=== PATIENT | female | born 1955 | race American Indian/Alaskan Native ===

== ENCOUNTER 2021-09-25 05:11 | Inpatient (IN) | payer SELFPAY ==
[2021-09-25] MEDS ORDERED: NITROGLYCERIN 0.4 MG TAB SUBL SL PRN (05:19)
--- NOTE | 2021-09-25 05:20 | Event Note ---
Date: 09/25/21 Medical screening examination note: 66-year-old female, who is not COVID-19 vaccinated, who reports that she does not have a local primary care doctor and is not aware if she has any long-term medical problems, presents to the ER with a few days of chest pain and shortness of breath. Denies travel, surgery, immobilization, DVT, PE risk factors. Place patient on metal and plastic heater. Obtain appropriate laboratory studies, EKG, and x-ray the chest. Treat patient's pain. Detailed history and physical to be performed by oncoming ER provider, who will determine patient's final disposition. At the moment, patient is resting on stretcher, protecting airway, vital signs acceptable at this time.
[2021-09-25 05:58] LABS: Basophils # (Auto) 0.1 K/mm3 (0.0-0.1); Basophils % (Auto) 1.1 % (0.0-1.8); Eosinophils % (Auto) 0.5 % (0.0-4.3); Lymphocytes # (Auto) 1.1 K/mm3 (1.2-5.4); Lymphocytes % (Auto) 14.7 % (13.4-35.0); Mean Corpuscular HGB Conc 31 % (30-34); Mean Corpuscular Volume 79 fl (79-97); Monocytes # (Auto) 0.5 K/mm3 (0.0-0.8); Monocytes % (Auto) 6.9 % (0.0-7.3); Platelet Count 388 K/mm3 (140-440); Red Blood Count 4.72 M/mm3 (3.65-5.03)
[2021-09-25 06:04] LABS: Hematocrit 37.3 % (30.3-42.9); Hemoglobin 11.4 gm/dl (10.1-14.3)
--- NOTE | 2021-09-25 06:05 | XRay Report ---
CHEST 1 VIEW 09/25/2021 5:41 AM INDICATION / CLINICAL INFORMATION: Dyspnea. COMPARISON: None available. FINDINGS: SUPPORT DEVICES: None. HEART / MEDIASTINUM: There is mild cardiomegaly. LUNGS / PLEURA: There are small pleural effusions with pulmonary vascular congestion. No pneumothorax . ADDITIONAL FINDINGS: No significant additional findings. IMPRESSION: 1. Findings most likely indicating CHF as described. Signer Name: Carlos Novoa MD Signed: 09/25/2021 6:00 AM Workstation Name: [email or web address]
[2021-09-25 06:08] LABS: INR 1.12 (0.87-1.13)
[2021-09-25 06:14] LABS: Alanine Aminotransferase 27 units/L (7-56); Albumin 3.3 g/dL (3.9-5); BUN/Creatinine Ratio 17; Blood Urea Nitrogen 17 mg/dL (7-17); Calcium 9.8 mg/dL (8.4-10.2); Hemolysis Index 6
[2021-09-25] MEDS ORDERED: FUROSEMIDE 40 MG/4 ML INJ IV ONE (06:35)
[2021-09-25] MEDS ORDERED: NITROGLYCERIN 2% OINT 1 GM TP ONE (06:49)
--- NOTE | 2021-09-25 06:49 | Emergency Department Report ---
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 Pain is rated 6/10 in intensity without aggravating or alleviating factors. Patient has not seen a primary care doctor in many years. She states EMS came to the home 2 days ago and assessed her and since her exam was unremarkable was told she might have anxiety and elected not to come to the hospital. Symptoms worsened over the last several days. Patient smokes on occasion. Complains of cough and mild intermittent pedal edema. Patient expresses concern about being admitted since it is tax season and she has work to do Severity scale (0 -10): 6 - Related Data Allergies Allergy/AdvReac Type Severity Reaction Status Date / Time No Known Allergies Allergy Unverified 09/25/21 05:24 Heart Score - HEART Score History: Moderately suspicious EKG: Non-specific Age: 45-65 Risk factors: 1-2 risk factors Troponin: < normal limit HEART Score: 4 - EKG Read Time Time EKG Completed: 05:17 EKG Read Time: 05:20 ED Review of Systems ROS: Stated complaint: PETER Other details as noted in HPI Comment: All other systems reviewed and negative ED Past Medical Hx - Past Medical History Previous Medical History?: Yes Hx Hypertension: Yes - Surgical History Past Surgical History?: No - Social History Smoking Status: Current Every Day Smoker Substance Use Type: None ED Physical Exam - General Limitations: No Limitations - Other Other exam information: General: No acute distress Head: Atraumatic Eyes: normal appearance ENT: Moist mucous membranes Neck: Normal appearance, no midline tenderness Chest: Mild crackles at bases, tachypnea CV: Regular rate and rhythm Abdomen: Soft, normal bowel sounds, nontender, nondistended, no rebound or guarding Back: Normal inspection Extremity: Normal inspection, full range of motion, no edema noted, no calf tenderness or leg asymmetry Neuro: Alert O x 3, no facial asymmetry, speech clear, no gross motor sensory deficit Psych: Appropriate behavior Skin: No rash ED Course Vital Signs 09/25/21 09/25/21 09/25/21 05:25 05:26 05:31 Temperature 97.7 F Pulse Rate 95 H 95 H Respiratory 18 18 30 H Rate Blood Pressure 168/117 Blood Pressure 174/79 [Left] O2 Sat by Pulse 96 96 97 Oximetry 09/25/21 09/25/21 09/25/21 05:43 05:45 06:01 Temperature Pulse Rate 93 H 91 H 90 Respiratory 31 H 16 Rate Blood Pressure 172/111 172/111 151/99 Blood Pressure [Left] O2 Sat by Pulse 95 92 Oximetry 09/25/21 09/25/21 09/25/21 06:15 06:31 06:45 Temperature Pulse Rate 88 86 89 Respiratory 27 H 22 28 H Rate Blood Pressure 152/96 153/105 145/98 Blood Pressure [Left] O2 Sat by Pulse 96 95 97 Oximetry 09/25/21 09/25/21 07:01 07:17 Temperature Pulse Rate 91 H 91 H Respiratory 30 H 30 H Rate Blood Pressure 169/128 Blood Pressure 169/128 [Left] O2 Sat by Pulse 99 99 Oximetry EMERALD score - Emerald Score Age > 65: (0) No Aspirin use within the Past 7 Days: (0) No 3 or more CAD Risk Factors: (0) No 2 or more Angina events in past 24 hrs: (1) Yes Known CAD with more than 50% Stenosis: (0) No Elevated Cardiac Markers: (0) No ST Deviation Greater than 0.5mm: (0) No EMERALD Score: 1 ED Medical Decision Making - Lab Data Result diagrams: 09/25/21 05:24 09/25/21 05:24 Lab Results 09/25/21 09/25/21 09/25/21 Range/Units 05:24 05:24 05:24 WBC 7.5 (4.5-11.0) K/mm3 RBC 4.72 (3.65-5.03) M/mm3 Hgb 11.4 (10.1-14.3) gm/dl Hct 37.3 (30.3-42.9) % MCV 79 (79-97) fl MCH 24 L (28-32) pg MCHC 31 (30-34) % RDW 18.0 H (13.2-15.2) % Plt Count 388 (140-440) K/mm3 Lymph % (Auto) 14.7 (13.4-35.0) % [place] % (Auto) 6.9 (0.0-7.3) % Eos % (Auto) 0.5 (0.0-4.3) % Baso % (Auto) 1.1 (0.0-1.8) % Lymph # (Auto) 1.1 L (1.2-5.4) K/mm3 [place] # (Auto) 0.5 (0.0-0.8) K/mm3 Eos # (Auto) 0.0 (0.0-0.4) K/mm3 Baso # (Auto) 0.1 (0.0-0.1) K/mm3 Seg Neutrophils % 76.8 H (40.0-70.0) % Seg Neutrophils # 5.8 (1.8-7.7) K/mm3 PT 15.7 H (12.2-14.9) Sec. INR 1.12 (0.87-1.13) Sodium 142 (137-145) mmol/L Potassium 3.6 (3.6-5.0) mmol/L Chloride 108.1 H (98-107) mmol/L Carbon Dioxide 20 L (22-30) mmol/L Anion Gap 18 mmol/L BUN 17 (7-17) mg/dL Creatinine 1.0 (0.6-1.2) mg/dL Estimated GFR > 60 ml/min BUN/Creatinine Ratio 17 % Glucose 117 H (65-100) mg/dL Calcium 9.8 (8.4-10.2) mg/dL Magnesium 2.10 (1.7-2.3) mg/dL Total Bilirubin 0.30 (0.1-1.2) mg/dL AST 17 (5-40) units/L ALT 27 (7-56) units/L Alkaline Phosphatase 124 (35-129) units/L Troponin T < 0.010 (0.00-0.029) ng/mL NT-Pro-B Natriuret Pep (0-900) pg/mL Total Protein 7.6 (6.3-8.2) g/dL Albumin 3.3 L (3.9-5) g/dL Albumin/Globulin Ratio 0.8 % 09/25/21 Range/Units 05:24 WBC (4.5-11.0) K/mm3 RBC (3.65-5.03) M/mm3 Hgb (10.1-14.3) gm/dl Hct (30.3-42.9) % MCV (79-97) fl MCH (28-32) pg MCHC (30-34) % RDW (13.2-15.2) % Plt Count (140-440) K/mm3 Lymph % (Auto) (13.4-35.0) % [place] % (Auto) (0.0-7.3) % Eos % (Auto) (0.0-4.3) % Baso % (Auto) (0.0-1.8) % Lymph # (Auto) (1.2-5.4) K/mm3 [place] # (Auto) (0.0-0.8) K/mm3 Eos # (Auto) (0.0-0.4) K/mm3 Baso # (Auto) (0.0-0.1) K/mm3 Seg Neutrophils % (40.0-70.0) % Seg Neutrophils # (1.8-7.7) K/mm3 PT (12.2-14.9) Sec. INR (0.87-1.13) Sodium (137-145) mmol/L Potassium (3.6-5.0) mmol/L Chloride (98-107) mmol/L Carbon Dioxide (22-30) mmol/L Anion Gap mmol/L BUN (7-17) mg/dL Creatinine (0.6-1.2) mg/dL Estimated GFR ml/min BUN/Creatinine Ratio % Glucose (65-100) mg/dL Calcium (8.4-10.2) mg/dL Magnesium (1.7-2.3) mg/dL Total Bilirubin (0.1-1.2) mg/dL AST (5-40) units/L ALT (7-56) units/L Alkaline Phosphatase (35-129) units/L Troponin T (0.00-0.029) ng/mL NT-Pro-B Natriuret Pep 5161 H (0-900) pg/mL Total Protein (6.3-8.2) g/dL Albumin (3.9-5) g/dL Albumin/Globulin Ratio % - EKG Data -: EKG Interpreted by Me (Left bundle branch block with appropriate discordance) EKG shows normal: sinus rhythm, ST-T waves (No STEMI) - EKG Data When compared to previous EKG there are: previous EKG unavailable - Radiology Data Radiology results: report reviewed CHEST 1 VIEW 09/25/2021 5:41 AM INDICATION / CLINICAL INFORMATION: Dyspnea. COMPARISON: None available. FINDINGS: SUPPORT DEVICES: None. HEART / MEDIASTINUM: There is mild cardiomegaly. LUNGS / PLEURA: There are small pleural effusions with pulmonary vascular congestion. No pneumothorax. ADDITIONAL FINDINGS: No significant additional findings. IMPRESSION: 1. Findings most likely indicating CHF as described. - Medical Decision Making 66-year-old female presents with right-sided intermittent chest pressure and progressive worsening shortness of breath and orthopnea/PND. ED work-up reveals pulmonary edema likely secondary to long-term noncompliance of hypertensive medication. EKG reveals left bundle branch block with negative troponin. Subsequent troponin pending. Patient provided aspirin, IV Lasix, Nitropaste placed to chest wall, and supplemental oxygen. Cardiology consult ordered. Case discussed with hospitalist for admission. - Differential Diagnosis CA, unstable angina, CHF, PE, pneumonia Critical Care Time: No Critical care attestation.: If time is entered above; I have spent that time in minutes in the direct care of this critically ill patient, excluding procedure time. ED Disposition Clinical Impression: New onset of congestive heart failure, Chest pain, Hypertension, Left bundle branch block Disposition: ADMITTED INPATIENT Is pt being admited?: Yes Condition: Stable Instructions: Hypertension (ED) Time of Disposition: 07:30 (Dr whittaker/hosp )
[2021-09-25] MEDS ORDERED: ASPIRIN 325 MG TAB PO ONE (06:58)
[2021-09-25] MEDS ORDERED: ACETAMINOPHEN 325 MG TAB PO PRN (09:00)
[2021-09-25] MEDS ORDERED: oxyCODONE /ACETAMINOPHEN 5-325MG TAB PO PRN (09:00)
[2021-09-25] MEDS ORDERED: ONDANSETRON 4 MG/2 ML INJ IV PRN (09:00)
[2021-09-25] MEDS ORDERED: MORPHINE 4 MG/1 ML INJ IV PRN (09:00)
[2021-09-25] MEDS ORDERED: ALBUTEROL 2.5 MG/3 ML NEBU IH PRN (09:00)
[2021-09-25] MEDS ORDERED: NALOXONE 0.4 MG/1 ML INJ IV PRN (09:00)
[2021-09-25] MEDS ORDERED: ALUM-MAG HYDROXIDE-SIMETHICONE 200-200-20MG/5ML ORAL LIQD 30 ML PO PRN (09:00)
[2021-09-25] MEDS ORDERED: LORazepam 2 MG/ML VIAL IV ONE (09:28)
[2021-09-25] MEDS: ENOXAPARIN 40 MG/0.4 ML INJ SUB-Q SCH (10:14)
[2021-09-25] MEDS: ASPIRIN 81 MG TAB CHEW PO SCH (10:14)
[2021-09-25] MEDS: POTASSIUM CHLORIDE ER 20 MEQ TAB PO SCH ×2 (10:24→21:22)
[2021-09-25] MEDS: LOSARTAN 50 MG TAB PO SCH (10:24)
[2021-09-25] MEDS: carvediloL 12.5 MG TAB PO SCH ×2 (11:10→21:22)
--- NOTE | 2021-09-25 13:13 | History and Physical Report ---
History of Present Illness Date of examination: 09/25/21 Date of admission: 09/25/21 09:00 Chief complaint: Shortness of breath chest discomfort. Times several days. History of present illness: Patient 66-year-old with a history of hypertension has been noncompliant presents with a 3-day history of atypical chest pain associated with shortness of breath. Patient's pain described as 6-8 out of 10 right-sided. No alleviating or aggravating symptoms. No radiation in pain. Patient does give symptoms of shortness of breath as well as shortness of breath when she lays down. 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 Patient states that she feels weaker when she gets around such as doing her groceries and performing all of her ADLs. Has noticed something different. During presentation friend at bedside. States patient has been doing this for approximately 1 week. Patient has somewhat pressured speech consistent with anxiety. Patient does not want to stay in the hospital wants to be discharged secondary to what she states is tax season. I did discuss the severity of patient's illness and etiology and she is willing to stay. Patient denies any recent sick contacts. Does state her father passed from congestive heart failure and that is when the reasons why she is staying. Patient denies any side high salt diet. Denies any high sodium foods. Denies any major swelling on lower extremities however states after a long day her ankles and legs will become swollen. She denies any syncope. Past History Past Medical History: hypertension. denies: arrhythmia, liver disease, pulmonary embolism, renal failure, seizures, stroke Past Surgical History: No surgical history Social history: single, Lives alone, other (Occasional tobacco and alcohol.) Family history: hypertension, other (Congestive heart failure) Medications and Allergies Allergies Allergy/AdvReac Type Severity Reaction Status Date / Time No Known Allergies Allergy Verified 09/25/21 07:47 Home Medications Medication Instructions Recorded Confirmed Last Taken Type No Known Home Medications [No 09/25/21 09/25/21 Unknown History Reported Home Medications] Active Meds: Active Medications Acetaminophen (Acetaminophen 325 Mg Tab) 650 mg PO Q4H PRN PRN Reason: Pain MILD(1-3)/Fever >100.5/WARNER Al Hydrox/Mg Hydrox/Simethicone (Alum-Mag Hydroxide-Simethicone [id number]/5ml Oral Liqd 30 Ml) 30 ml PO Q4H PRN PRN Reason: Indigestion Albuterol (Albuterol 2.5 Mg/3 Ml Nebu) 2.5 mg IH Q4HRT PRN PRN Reason: Shortness Of Breath Aspirin (Aspirin 81 Mg Tab Chew) 81 mg PO QDAY [facility] Last Admin: 09/25/21 10:14 Dose: 81 mg Bisacodyl (Bisacodyl 10 Mg Rect Supp) 10 mg [place] QDAY PRN PRN Reason: Constipation unrelieved by MOM Carvedilol (Carvedilol 12.5 Mg Tab) 12.5 mg PO BID [facility] Last Admin: 09/25/21 11:10 Dose: 12.5 mg Enoxaparin Sodium (Enoxaparin 40 Mg/0.4 Ml Inj) 40 mg SUB-Q QDAY [facility] Last Admin: 09/25/21 10:14 Dose: 40 mg Furosemide (Furosemide 20 Mg/2 Ml Inj) 20 mg IV BID@0600,1800 [facility] Losartan Potassium (Losartan 50 Mg Tab) 50 mg PO QDAY [facility] Last Admin: 09/25/21 10:24 Dose: 50 mg Morphine Sulfate (Morphine 4 Mg/1 Ml Inj) 4 mg IV Q4H PRN PRN Reason: Pain , Severe (7-10) Naloxone HCl (Naloxone 0.4 Mg/1 Ml Inj) 0.1 mg IV Q2MIN PRN PRN Reason: Res Rate </= 8 or 02 SAT < 92% Nitroglycerin (Nitroglycerin 0.4 Mg Tab Subl) 0.4 mg SL .Q5MIN PRN PRN Reason: Chest Pain Last Admin: 09/25/21 05:43 Dose: 0.4 mg Ondansetron HCl (Ondansetron 4 Mg/2 Ml Inj) 4 mg IV Q8H PRN PRN Reason: Nausea And Vomiting Oxycodone/Acetaminophen (Oxycodone /Acetaminophen 5-325mg Tab) 1 tab PO Q6H PRN PRN Reason: Pain, Moderate (4-6) Potassium Chloride (Potassium Chloride Er 20 Meq Tab) 20 meq PO BID [facility] Last Admin: 09/25/21 10:24 Dose: 20 meq Sodium Chloride (Sodium Chloride 0.9% 10 Ml Flush Syringe) 10 ml IV BID [facility] Last Admin: 09/25/21 10:04 Dose: 10 ml Sodium Chloride (Sodium Chloride 0.9% 10 Ml Flush Syringe) 10 ml IV PRN PRN PRN Reason: LINE FLUSH Zolpidem Tartrate (Zolpidem 5 Mg Tab) 5 mg PO QHS PRN PRN Reason: Insomnia Review of Systems Constitutional: fatigue, weakness, malaise, no weight loss, no weight gain, no fever, no chills, no sweats, no night sweats, no anorexia, no lethargy, no chronic headaches, no poor appetite Ears, nose, mouth and throat: no ear pain, no nose pain, no nasal congestion, no dental pain, no mouth pain, no hoarseness, no sore throat, no neck fullness/pressure Cardiovascular: chest pain, orthopnea, edema, shortness of breath, dyspnea on exertion, high blood pressure, leg edema, decreased exercise tolerance, no palpitations, no rapid/irregular heart beat, no syncope, no lightheadedness, no paroxysmal nocturnal dyspnea, no claudication, no phlebitis Respiratory: cough, shortness of breath, no excessive sputum, no hemoptysis, no pleurisy, no pain, no sleep apnea, no respiratory infections, no home oxygen Gastrointestinal: no vomiting, no diarrhea, no change in bowel habits, no hematemesis, no hematochezia, no loss of appetite, no early satiety, no jaundice, no dyspepsia/bloating, no early satiety Musculoskeletal: no neck stiffness, no neck pain, no shooting arm pain, no low back pain, no morning stiffness, no muscle weakness, no limitation of motion, no frequent falls, no fractures, no loss of height Neurological: weakness, no numbness, no tingling, no tremors, no lack of coordination, no vertigo, no loss of vision, no hearing difficulties Psychiatric: anxiety Endocrine: no polyphagia, no polydipsia, no nocturia, no flushing, no proptosis, no deepening of the voice, no palpatations, no fatigue Allergic/Immunologic: no gluten intolerance, no seasonal allergies Exam - Constitutional Vitals: Temp Pulse Resp BP Pulse Ox 98.3 F 95 H 17 159/106 97 09/25/21 12:12 09/25/21 12:30 09/25/21 12:12 09/25/21 12:12 09/25/21 12:30 General appearance: Present: no acute distress, well-nourished - EENT Eyes: Present: PERRL ENT: hearing intact, clear oral mucosa - Neck Neck: Present: supple, normal ROM - Respiratory Respiratory effort: normal Respiratory: bilateral: rhonchi (Bilateral rhonchi especially in the bases. Somewhat clear with cough) - Cardiovascular Heart Sounds: Present: S1 & S2. Absent: rub, click - Extremities Extremities: pulses symmetrical, No edema Peripheral Pulses: within normal limits - Abdominal General gastrointestinal: Present: soft, non-tender, non-distended, normal bowel sounds Female genitourinary: Present: normal - Integumentary Integumentary: Present: clear, warm, dry - Musculoskeletal Musculoskeletal: gait normal, strength equal bilaterally - Psychiatric Psychiatric: appropriate mood/affect, intact judgment & insight - Neurologic Neurologic: CNII-XII intact, moves all extremities HEART Score - HEART Score History: Moderately suspicious EKG: Non-specific Age: 45-65 Risk factors: 1-2 risk factors Troponin: Troponin T < 0.010 ng/mL (0.00-0.029) 09/25/21 11:16 Troponin: < normal limit HEART Score: 4 Results - Labs CBC & Chem 7: 09/25/21 05:24 09/25/21 05:24 Labs: Laboratory Last Values WBC 7.5 K/mm3 (4.5-11.0) 09/25/21 05:24 RBC 4.72 M/mm3 (3.65-5.03) 09/25/21 05:24 Hgb 11.4 gm/dl (10.1-14.3) 09/25/21 05:24 Hct 37.3 % (30.3-42.9) 09/25/21 05:24 MCV 79 fl (79-97) 09/25/21 05:24 MCH 24 pg (28-32) L 09/25/21 05:24 MCHC 31 % (30-34) 09/25/21 05:24 RDW 18.0 % (13.2-15.2) H 09/25/21 05:24 Plt Count 388 K/mm3 (140-440) 09/25/21 05:24 Lymph % (Auto) 14.7 % (13.4-35.0) 09/25/21 05:24 [place] % (Auto) 6.9 % (0.0-7.3) 09/25/21 05:24 Eos % (Auto) 0.5 % (0.0-4.3) 09/25/21 05:24 Baso % (Auto) 1.1 % (0.0-1.8) 09/25/21 05:24 Lymph # (Auto) 1.1 K/mm3 (1.2-5.4) L 09/25/21 05:24 [place] # (Auto) 0.5 K/mm3 (0.0-0.8) 09/25/21 05:24 Eos # (Auto) 0.0 K/mm3 (0.0-0.4) 09/25/21 05:24 Baso # (Auto) 0.1 K/mm3 (0.0-0.1) 09/25/21 05:24 Seg Neutrophils % 76.8 % (40.0-70.0) H 09/25/21 05:24 Seg Neutrophils # 5.8 K/mm3 (1.8-7.7) 09/25/21 05:24 PT 15.7 Sec. (12.2-14.9) H 09/25/21 05:24 INR 1.12 (0.87-1.13) 09/25/21 05:24 Sodium 142 mmol/L (137-145) 09/25/21 05:24 Potassium 3.6 mmol/L (3.6-5.0) 09/25/21 05:24 Chloride 108.1 mmol/L (98-107) H 09/25/21 05:24 Carbon Dioxide 20 mmol/L (22-30) L 09/25/21 05:24 Anion Gap 18 mmol/L 09/25/21 05:24 BUN 17 mg/dL (7-17) 09/25/21 05:24 Creatinine 1.0 mg/dL (0.6-1.2) 09/25/21 05:24 Estimated GFR > 60 ml/min 09/25/21 05:24 BUN/Creatinine Ratio 17 % 09/25/21 05:24 Glucose 117 mg/dL (65-100) H 09/25/21 05:24 Calcium 9.8 mg/dL (8.4-10.2) 09/25/21 05:24 Magnesium 2.10 mg/dL (1.7-2.3) 09/25/21 05:24 Total Bilirubin 0.30 mg/dL (0.1-1.2) 09/25/21 05:24 AST 17 units/L (5-40) 09/25/21 05:24 ALT 27 units/L (7-56) 09/25/21 05:24 Alkaline Phosphatase 124 units/L (35-129) 09/25/21 05:24 Troponin T < 0.010 ng/mL (0.00-0.029) 09/25/21 11:16 NT-Pro-B Natriuret Pep 5161 pg/mL (0-900) H 09/25/21 05:24 Total Protein 7.6 g/dL (6.3-8.2) 09/25/21 05:24 Albumin 3.3 g/dL (3.9-5) L 09/25/21 05:24 Albumin/Globulin Ratio 0.8 % 09/25/21 05:24 [place]/IV: Voiding Method Toilet Assessment and Plan Advance Directives: Yes VTE prophylaxis?: Chemical Plan of care discussed with patient/family: Yes - Patient Problems (1) Chest pain Current Visit: Yes Status: Acute Plan to address problem: Patient has atypical chest pain. Does not appear to be pneumonia or bronchitis not pleuritic associated with cough or deep inspiration. Very atypical and has resolved at this time. Patient was also having some reflux symptoms. We will add proton pump inhibitor this may be etiology. Patient will most likely require stress test further risk ratification after discharge. (2) Hypertension Current Visit: Yes Status: Acute Plan to address problem: Patient with hypertensive emergency. Has been a long-term hypertension most likely etiology for congestive heart failure. Once we aggressive with correcting blood pressure. Heart failure should improved. Did discuss patient about the benefits of early and aggressive treatment with congestive heart failure. And also improving her complianCE -We will treat with Coreg 12.5 mg twice daily. -Losartan 50 mg 1 tab p.o. daily. Dose titrate accordingly. (3) Left bundle branch block Current Visit: Yes Status: Acute Plan to address problem: Cardiology evaluation. No acute findings. (4) New onset of congestive heart failure Current Visit: Yes Status: Acute Plan to address problem: Patient new onset heart failure. Follow-up echocardiogram. Further risk ratified with antiplatelet Antithrombin therapy. We will add Coreg 12.5 mg twice daily Add losartan. Congestive heart failure. Cardiology consultation. Entresto Follow renal function with consideration of Entresto
--- NOTE | 2021-09-25 15:22 | Electrocardiograph Report ---
[facility] Test Date: 2021-09-25 Test Time: 05:17:24 Pat Name: SOHAN WHEATON Department: Room: A469 Gender: F Manager Er: MOOSE : 1955 Requested By: KIMBERLY GRANGER Order Number: [id number] Reading MD: Popeye lBoom Measurements Intervals [place] Rate: 94 P: 67 NC: 146 QRS: -38 QRSD: 138 T: 92 QT: 412 QTc: 515 Interpretive Statements Sinus rhythm Left bundle branch block ST elevation secondary to IVCD LAD No previous ECG available for comparison Electronically Signed On 09-25-2021 15:22:06 EDT by Popeye Bloom
[2021-09-25] MEDS: FUROSEMIDE 20 MG/2 ML INJ IV SCH (17:15)
[2021-09-25] MEDS: ZOLPIDEM 5 MG TAB PO PRN (21:36)
[2021-09-26] MEDS: FUROSEMIDE 20 MG/2 ML INJ IV SCH ×3 (05:27→19:19)
[2021-09-26 06:25] LABS: Alanine Aminotransferase 26 units/L (7-56); Albumin 2.9 g/dL (3.9-5); BUN/Creatinine Ratio 18; Blood Urea Nitrogen 20 mg/dL (7-17); Calcium 8.9 mg/dL (8.4-10.2); Hemolysis Index 7
[2021-09-26] MEDS: ASPIRIN 81 MG TAB CHEW PO SCH (11:23)
[2021-09-26] MEDS: carvediloL 12.5 MG TAB PO SCH ×2 (11:23→22:05)
[2021-09-26] MEDS: POTASSIUM CHLORIDE ER 20 MEQ TAB PO SCH ×2 (11:24→22:05)
[2021-09-26] MEDS: LOSARTAN 50 MG TAB PO SCH (12:21)
[2021-09-26] MEDS: ENOXAPARIN 40 MG/0.4 ML INJ SUB-Q SCH (12:26)
--- NOTE | 2021-09-26 13:37 | Progress Note ---
Assessment and Plan Assessment and plan: Acute combined systolic and diastolic heart failure. LVEF 10-15% chest pain Hypertension Left bundle branch block 09/26/2021. Echocardiogram reveals left ventricular normal size with EF severely decreased. There is severe global hypokinesis and mild diastolic dysfunction. LVEF 15-20% ischemic evaluation per cardiology recommendations. Await cardiology consultation. The patient's blood pressure is still elevated diastolically. We will increase Cozaar to 100 mg daily. History Interval history: No new issues overnight Hospitalist Physical - Constitutional Vitals: Temp Pulse Resp BP Pulse Ox 98.0 F 79 18 150/105 99 09/26/21 11:08 09/26/21 11:09 09/26/21 04:04 09/26/21 11:08 09/26/21 11:09 General appearance: Present: no acute distress, well-nourished - EENT Eyes: Present: PERRL, EOM intact ENT: hearing intact, clear oral mucosa, dentition normal - Neck Neck: Present: supple, normal ROM - Respiratory Respiratory effort: normal Respiratory: bilateral: CTA - Cardiovascular Rhythm: regular Heart Sounds: Present: S1 & S2. Absent: gallop, rub - Extremities Extremities: no ischemia, No edema, Full ROM - Abdominal General gastrointestinal: soft, non-tender, non-distended, normal bowel sounds - Integumentary Integumentary: Present: clear, warm, dry - Neurologic Neurologic: CNII-XII intact, moves all extremities HEART Score - HEART Score EKG: Non-specific Age: 45-65 Risk factors: 1-2 risk factors Troponin: Troponin T < 0.010 ng/mL (0.00-0.029) 09/25/21 11:16 Troponin: < normal limit Results - Labs CBC & Chem 7: 09/25/21 05:24 09/26/21 05:33 Labs: Laboratory Last Values WBC 7.5 K/mm3 (4.5-11.0) 09/25/21 05:24 RBC 4.72 M/mm3 (3.65-5.03) 09/25/21 05:24 Hgb 11.4 gm/dl (10.1-14.3) 09/25/21 05:24 Hct 37.3 % (30.3-42.9) 09/25/21 05:24 MCV 79 fl (79-97) 09/25/21 05:24 MCH 24 pg (28-32) L 09/25/21 05:24 MCHC 31 % (30-34) 09/25/21 05:24 RDW 18.0 % (13.2-15.2) H 09/25/21 05:24 Plt Count 388 K/mm3 (140-440) 09/25/21 05:24 Lymph % (Auto) 14.7 % (13.4-35.0) 09/25/21 05:24 [place] % (Auto) 6.9 % (0.0-7.3) 09/25/21 05:24 Eos % (Auto) 0.5 % (0.0-4.3) 09/25/21 05:24 Baso % (Auto) 1.1 % (0.0-1.8) 09/25/21 05:24 Lymph # (Auto) 1.1 K/mm3 (1.2-5.4) L 09/25/21 05:24 [place] # (Auto) 0.5 K/mm3 (0.0-0.8) 09/25/21 05:24 Eos # (Auto) 0.0 K/mm3 (0.0-0.4) 09/25/21 05:24 Baso # (Auto) 0.1 K/mm3 (0.0-0.1) 09/25/21 05:24 Seg Neutrophils % 76.8 % (40.0-70.0) H 09/25/21 05:24 Seg Neutrophils # 5.8 K/mm3 (1.8-7.7) 09/25/21 05:24 PT 15.7 Sec. (12.2-14.9) H 09/25/21 05:24 INR 1.12 (0.87-1.13) 09/25/21 05:24 Sodium 142 mmol/L (137-145) 09/26/21 05:33 Potassium 4.0 mmol/L (3.6-5.0) 09/26/21 05:33 Chloride 108.7 mmol/L (98-107) H 09/26/21 05:33 Carbon Dioxide 22 mmol/L (22-30) 09/26/21 05:33 Anion Gap 15 mmol/L 09/26/21 05:33 BUN 20 mg/dL (7-17) H 09/26/21 05:33 Creatinine 1.1 mg/dL (0.6-1.2) 09/26/21 05:33 Estimated GFR > 60 ml/min 09/26/21 05:33 BUN/Creatinine Ratio 18 % 09/26/21 05:33 Glucose 121 mg/dL (65-100) H 09/26/21 05:33 Calcium 8.9 mg/dL (8.4-10.2) 09/26/21 05:33 Magnesium 2.10 mg/dL (1.7-2.3) 09/25/21 05:24 Total Bilirubin 0.20 mg/dL (0.1-1.2) 09/26/21 05:33 AST 21 units/L (5-40) 09/26/21 05:33 ALT 26 units/L (7-56) 09/26/21 05:33 Alkaline Phosphatase 120 units/L (35-129) 09/26/21 05:33 Troponin T < 0.010 ng/mL (0.00-0.029) 09/25/21 11:16 NT-Pro-B Natriuret Pep 5161 pg/mL (0-900) H 09/25/21 05:24 Total Protein 6.9 g/dL (6.3-8.2) 09/26/21 05:33 Albumin 2.9 g/dL (3.9-5) L 09/26/21 05:33 Albumin/Globulin Ratio 0.7 % 09/26/21 05:33 [place]/IV: Voiding Method Toilet Active Medications - Current Medications Current Medications: Generic Name Dose Route Start Last Admin Trade Name Freq PRN Reason Stop Dose Admin Acetaminophen 650 mg 09/25/21 09:00 Acetaminophen 325 Mg Tab PO Q4H PRN Pain MILD(1-3)/Fever >100.5/WARNER Al Hydrox/Mg Hydrox/Simethicone 30 ml 09/25/21 09:00 Alum-Mag Hydroxide-Simethicone [id number]/5ml Oral Liqd 30 Ml PO Q4H PRN Indigestion Albuterol 2.5 mg 09/25/21 09:00 Albuterol 2.5 Mg/3 Ml Nebu IH Q4HRT PRN Shortness Of Breath Aspirin 81 mg 09/25/21 10:00 09/26/21 11:23 Aspirin 81 Mg Tab Chew PO 81 mg QDAY HUMBERTO Administration Bisacodyl 10 mg 09/25/21 09:00 Bisacodyl 10 Mg Rect Supp [place] QDAY PRN Constipation unrelieved by MOM Carvedilol 12.5 mg 09/25/21 10:00 09/26/21 11:23 Carvedilol 12.5 Mg Tab PO 12.5 mg BID HUMBERTO Administration Enoxaparin Sodium 40 mg 09/25/21 10:00 09/26/21 12:26 Enoxaparin 40 Mg/0.4 Ml Inj SUB-Q 40 mg QDAY HUMBERTO Administration Furosemide 40 mg 09/26/21 11:00 09/26/21 12:48 Furosemide 20 Mg/2 Ml Inj IV 40 mg BID@0600,1800 HUMBERTO Administration Losartan Potassium 50 mg 09/25/21 10:00 09/26/21 12:21 Losartan 50 Mg Tab PO 50 mg QDAY HUMBERTO Administration Morphine Sulfate 4 mg 09/25/21 09:00 Morphine 4 Mg/1 Ml Inj IV Q4H PRN Pain , Severe (7-10) Naloxone HCl 0.1 mg 09/25/21 09:00 Naloxone 0.4 Mg/1 Ml Inj IV Q2MIN PRN Res Rate </= 8 or 02 SAT < 92% Nitroglycerin 0.4 mg 09/25/21 05:19 09/25/21 05:43 Nitroglycerin 0.4 Mg Tab Subl SL 0.4 mg .Q5MIN PRN Administration Chest Pain Ondansetron HCl 4 mg 09/25/21 09:00 Ondansetron 4 Mg/2 Ml Inj IV Q8H PRN Nausea And Vomiting Oxycodone/Acetaminophen 1 tab 09/25/21 09:00 Oxycodone /Acetaminophen 5-325mg Tab PO Q6H PRN Pain, Moderate (4-6) Potassium Chloride 20 meq 09/25/21 10:00 09/26/21 11:24 Potassium Chloride Er 20 Meq Tab PO 20 meq BID HUMBERTO Administration Sodium Chloride 10 ml 09/25/21 10:00 09/26/21 12:33 Sodium Chloride 0.9% 10 Ml Flush Syringe IV 10 ml BID HUMBERTO Administration Sodium Chloride 10 ml 09/25/21 09:00 Sodium Chloride 0.9% 10 Ml Flush Syringe IV PRN PRN LINE FLUSH Zolpidem Tartrate 5 mg 09/25/21 09:00 09/25/21 21:36 Zolpidem 5 Mg Tab PO 5 mg QHS PRN Administration Insomnia
--- NOTE | 2021-09-26 15:05 | Consultation ---
History of Present Illness Consult date: 09/26/21 Requesting physician: GENA COFFEY Consult reason: congestive heart failure History of present illness: Chief complaint: Chest pressure, shortness of breath This is a 66-year-old -[place] female with significant past medical history of hypertension who presented to [facility] with 3 to 4-day history of shortness of breath and chest pressure. She stated that she woke up feeling that her heart was racing, and she had to take deep breaths to try to slow her breathing and heart rate. She stated that she had to prop herself up on pillows and lean forward to get comfortable. She rated the chest pressure as 5/10, localized to her right breast. It did not radiate. She also endorses orthopnea, PND, cough, and palpitations. She denies n/v, dizziness, syncope, recent illness or sick contacts. Of note, once hospitalized she stated that sublingual nitro tablets did alleviate her chest pain/pressure. The pain is not reproducible with palpation. She is not previously known to our practice. Cardiology is consulted for CHF/pulmonary edema. Past History Past Medical History: hypertension. denies: arrhythmia, liver disease, pulmonary embolism, renal failure, seizures, stroke Past Surgical History: (x2) Social history: single, Lives alone, other (Occasional tobacco and alcohol.) Family history: CAD (Father of heart failure; Mother with CAD requiring CABG), hypertension, other (Congestive heart failure) Medications and Allergies Allergies Allergy/AdvReac Type Severity Reaction Status Date / Time No Known Allergies Allergy Verified 09/25/21 07:47 Home Medications Medication Instructions Recorded Confirmed Last Taken Type No Known Home Medications [No 09/25/21 09/25/21 Unknown History Reported Home Medications] Active Meds: Active Medications Acetaminophen (Acetaminophen 325 Mg Tab) 650 mg PO Q4H PRN PRN Reason: Pain MILD(1-3)/Fever >100.5/WARNER Al Hydrox/Mg Hydrox/Simethicone (Alum-Mag Hydroxide-Simethicone [id number]/5ml Oral Liqd 30 Ml) 30 ml PO Q4H PRN PRN Reason: Indigestion Albuterol (Albuterol 2.5 Mg/3 Ml Nebu) 2.5 mg IH Q4HRT PRN PRN Reason: Shortness Of Breath Aspirin (Aspirin 81 Mg Tab Chew) 81 mg PO QDAY [facility] Last Admin: 09/26/21 11:23 Dose: 81 mg Bisacodyl (Bisacodyl 10 Mg Rect Supp) 10 mg AL QDAY PRN PRN Reason: Constipation unrelieved by MOM Carvedilol (Carvedilol 12.5 Mg Tab) 12.5 mg PO BID [facility] Last Admin: 09/26/21 11:23 Dose: 12.5 mg Enoxaparin Sodium (Enoxaparin 40 Mg/0.4 Ml Inj) 40 mg SUB-Q QDAY [facility] Last Admin: 09/26/21 12:26 Dose: 40 mg Furosemide (Furosemide 20 Mg/2 Ml Inj) 40 mg IV BID@0600,1800 [facility] Last Admin: 09/26/21 12:48 Dose: 40 mg Losartan Potassium (Losartan 50 Mg Tab) 100 mg PO QDAY [facility] Morphine Sulfate (Morphine 4 Mg/1 Ml Inj) 4 mg IV Q4H PRN PRN Reason: Pain , Severe (7-10) Naloxone HCl (Naloxone 0.4 Mg/1 Ml Inj) 0.1 mg IV Q2MIN PRN PRN Reason: Res Rate </= 8 or 02 SAT < 92% Nitroglycerin (Nitroglycerin 0.4 Mg Tab Subl) 0.4 mg SL .Q5MIN PRN PRN Reason: Chest Pain Last Admin: 09/25/21 05:43 Dose: 0.4 mg Ondansetron HCl (Ondansetron 4 Mg/2 Ml Inj) 4 mg IV Q8H PRN PRN Reason: Nausea And Vomiting Oxycodone/Acetaminophen (Oxycodone /Acetaminophen 5-325mg Tab) 1 tab PO Q6H PRN PRN Reason: Pain, Moderate (4-6) Potassium Chloride (Potassium Chloride Er 20 Meq Tab) 20 meq PO BID [facility] Last Admin: 09/26/21 11:24 Dose: 20 meq Sodium Chloride (Sodium Chloride 0.9% 10 Ml Flush Syringe) 10 ml IV BID [facility] Last Admin: 09/26/21 12:33 Dose: 10 ml Sodium Chloride (Sodium Chloride 0.9% 10 Ml Flush Syringe) 10 ml IV PRN PRN PRN Reason: LINE FLUSH Zolpidem Tartrate (Zolpidem 5 Mg Tab) 5 mg PO QHS PRN PRN Reason: Insomnia Last Admin: 09/25/21 21:36 Dose: 5 mg Review of Systems All systems: negative Constitutional: weakness, no fever, no chills Cardiovascular: chest pain, palpitations, shortness of breath, dyspnea on exertion, no syncope, no lightheadedness, no leg edema Respiratory: cough Gastrointestinal: no nausea, no vomiting, no diarrhea Integumentary: no rash Neurological: no syncope Psychiatric: no anxiety Physical Examination Vital Signs Resp Pulse Ox 18 96 09/25/21 05:25 09/25/21 05:25 General appearance: no acute distress HEENT: Positive: Normocephaly, Mucus Membranes Moist Cardiac: Positive: Reg Rate and Rhythm, S1/S2 Lungs: Positive: Decreased Breath Sounds, Oxygen Neuro: Positive: Grossly Intact Abdomen: Positive: Unremarkable, Soft Female genitourinary: deferred Skin: Positive: Clear. Negative: Rash Extremities: Present: upper extr. pulses (1+). Absent: edema Results 09/25/21 05:24 09/26/21 05:33 Cardiac Enzymes 09/26/21 Range/Units 05:33 AST 21 (5-40) units/L Comprehensive Metabolic Panel 09/26/21 Range/Units 05:33 Sodium 142 (137-145) mmol/L Potassium 4.0 (3.6-5.0) mmol/L Chloride 108.7 H (98-107) mmol/L Carbon Dioxide 22 (22-30) mmol/L BUN 20 H (7-17) mg/dL Creatinine 1.1 (0.6-1.2) mg/dL Glucose 121 H (65-100) mg/dL Calcium 8.9 (8.4-10.2) mg/dL AST 21 (5-40) units/L ALT 26 (7-56) units/L Alkaline Phosphatase 120 (35-129) units/L Total Protein 6.9 (6.3-8.2) g/dL Albumin 2.9 L (3.9-5) g/dL - Imaging and Cardiology Echo: report reviewed EKG: report reviewed EKG interpretations - Telemetry EKG Rhythm: Sinus Rhythm - EKG Sinus rhythms and dysrhythmias: sinus rhythm AV and intraventricular conduction: left bundle branch block Assessment and Plan Assessment: Acute HFrEF Chest Pain LBBB Hypertension Cardiographics: EKG 09/25/21: Sinus rhythm with left bundle branch block Chest x-ray: 09/25/21: Findings most likely indicate CHF as described Echocardiogram 09/26/2021: Left ventricle: The left ventricle is normal size. There is normal left ventricular wall thickness. Left ventricular ejection fraction is severely decreased. LVEF is 15 to 20%.Right ventricle: The right ventricle is normal size. Right ventricular systolic function is mildly reduced. Atria: Left atrium size is normal. Right atrium is mildly dilated. Tricuspid valve: Moderate tricuspid regurgitation. RSVP is 55 mmHg. Great vessels: The IVC is dilated. The IVC collapses less than 50% with inspiration. There appears to be echodensities in the IVC. Plan: Echocardiogram as above GDMT: Continue aspirin 81 mg, carvedilol 12.5 mg p.o. twice daily, Lasix 40 mg IV twice daily, losartan 100 mg p.o. daily Continue IV diuresis. Strict I&O, Daily weight. Close monitoring of kidney fuction. Daily BMP Patient needs ischemic evaluation in the setting of newly decreased EF. We will plan to optimize patient's volume status for 1 more day and will tentatively plan for LHC on Sunday. Patient seen in conjunction with Dr. Calle who agrees with the assessment and management of this patient. - Patient Problems (1) Acute HFrEF (heart failure with reduced ejection fraction) Current Visit: Yes Status: Acute (2) New onset of congestive heart failure Current Visit: Yes Status: Acute (3) Chest pain Current Visit: Yes Status: Acute (4) Hypertension Current Visit: Yes Status: Acute (5) Left bundle branch block Current Visit: Yes Status: Acute
[2021-09-26] MEDS: ZOLPIDEM 5 MG TAB PO PRN (22:06)
[2021-09-27] MEDS: FUROSEMIDE 20 MG/2 ML INJ IV SCH ×2 (05:29→17:37)
[2021-09-27 06:19] LABS: Calcium 9.4 mg/dL (8.4-10.2)
[2021-09-27] MEDS: LOSARTAN 50 MG TAB PO SCH ×2 (08:14→09:54)
--- NOTE | 2021-09-27 08:33 | Progress Note ---
Assessment and Plan Assessment and plan: History of present illness: Patient 66-year-old with a history of hypertension has been noncompliant pr esents with a 3-day history of atypical chest pain associated with shortness of breath. Patient's pain described as 6-8 out of 10 right-sided. No alleviating or aggravating symptoms. No radiation in pain. Patient does give symptoms of shortness of breath as well as shortness of breath when she lays down. 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 Patient states that she feels weaker when she gets around such as doing her groceries and performing all of her ADLs. Has noticed something different. During presentation friend at bedside. States patient has been doing this for approximately 1 week. Patient has somewhat pressured speech consistent with anxiety. Patient does not want to stay in the hospital wants to be discharged secondary to what she states is tax season. I did discuss the severity of patient's illness and etiology and she is willing to stay. Patient denies any recent sick contacts. Does state her father passed from congestive heart failure and that is when the reasons why she is staying. Patient denies any side high salt diet. Denies any high sodium foods. Denies any major swelling on lower extremities however states after a long day her ankles and legs will become swollen. She denies any syncope. Hospital course: 09/26/2021. Echocardiogram reveals left ventricular normal size with EF severely decreased. There is severe global hypokinesis and mild diastolic dysfunction. LVEF 15-20% ischemic evaluation per cardiology recommendations. Await cardiology consultation. The patient's blood pressure is still elevated diastolically. We will increase Cozaar to 100 mg daily. 09/27/2021: Discussed with cardiology. Plan is for ischemic evaluation with left heart cath tomorrow morning. Assessment and Plan: #Acute combined systolic and diastolic heart failure. NT proBNP 5161. Echo this admission demonstrates LVEF 10-15%. Continue GDMT with Lasix IV twice daily, Coreg, losartan. Cardiology following. Ischemic evaluation with [facility] on 09/28 for newly discovered HFrEF #Chest pain, resolved. Troponins negative x2. Aspirin 81 mg p.o. daily, lipid panel ordered #Hypertensive urgency. Coreg, losartan, Lasix #Essential hypertension, hypertensive agents as above #Left bundle branch block, noted on EKG this admission #Hyperglycemia, elevated blood sugar noted. Hemoglobin A1c ordered #Advance care planning Disease education conducted, care plan discussed, diagnoses discussed, prognosis discussed, patient is full code, patient acknowledges understanding and agree with care plan, +30 minutes. History Interval history: Patient seen and evaluated at bedside. No complaints this AM. Patient on 4 L nasal cannula supplemental oxygen. Patient educated on nature of current disease process as well as planned cardiac cath tomorrow. He verbalized un derstanding. Hospitalist Physical - Physical exam Narrative exam: Physical Exam: VITAL SIGNS: Reviewed. GENERAL: The patient appears normally developed, Vital signs as documented. HEAD: No signs of head trauma. EYES: Pupils are equal. Extraocular motions intact. EARS: Hearing grossly intact. MOUTH: Oropharynx is normal. NECK: No adenopathy, no JVD. CHEST: Chest with clear breath sounds bilaterally. No wheezes, rales, or rhonchi. CARDIAC: Regular rate and rhythm. S1 and S2, without murmurs, gallops, or ru bs. VASCULAR: No Edema. Peripheral pulses normal and equal in all extremities. ABDOMEN: Soft, non tender and non distended. No rebound or guarding, and no masses palpated. Bowel Sounds normal. MUSCULOSKELETAL: Good range of motion of all major joints. Extremities without clubbing, cyanosis or edema. NEUROLOGIC EXAM: Alert and oriented x 4. no focal sensory or strength deficits. PSYCHIATRIC: Mood normal. SKIN: detail exam as documented in skin assessment - Constitutional Vitals: Temp Pulse Resp BP Pulse Ox 97.5 F L 76 18 145/97 100 09/27/21 08:06 09/27/21 08:06 09/27/21 08:06 09/27/21 08:06 09/27/21 08:06 General appearance: Present: no acute distress HEART Score - HEART Score EKG: Non-specific Age: 45-65 Risk factors: 1-2 risk factors Troponin: Troponin T < 0.010 ng/mL (0.00-0.029) 09/25/21 11:16 Troponin: < normal limit Results - Labs CBC & Chem 7: 09/25/21 05:24 09/27/21 05:35 Labs: Laboratory Last Values WBC 7.5 K/mm3 (4.5-11.0) 09/25/21 05:24 RBC 4.72 M/mm3 (3.65-5.03) 09/25/21 05:24 Hgb 11.4 gm/dl (10.1-14.3) 09/25/21 05:24 Hct 37.3 % (30.3-42.9) 09/25/21 05:24 MCV 79 fl (79-97) 09/25/21 05:24 MCH 24 pg (28-32) L 09/25/21 05:24 MCHC 31 % (30-34) 09/25/21 05:24 RDW 18.0 % (13.2-15.2) H 09/25/21 05:24 Plt Count 388 K/mm3 (140-440) 09/25/21 05:24 Lymph % (Auto) 14.7 % (13.4-35.0) 09/25/21 05:24 [place] % (Auto) 6.9 % (0.0-7.3) 09/25/21 05:24 Eos % (Auto) 0.5 % (0.0-4.3) 09/25/21 05:24 Baso % (Auto) 1.1 % (0.0-1.8) 09/25/21 05:24 Lymph # (Auto) 1.1 K/mm3 (1.2-5.4) L 09/25/21 05:24 [place] # (Auto) 0.5 K/mm3 (0.0-0.8) 09/25/21 05:24 Eos # (Auto) 0.0 K/mm3 (0.0-0.4) 09/25/21 05:24 Baso # (Auto) 0.1 K/mm3 (0.0-0.1) 09/25/21 05:24 Seg Neutrophils % 76.8 % (40.0-70.0) H 09/25/21 05:24 Seg Neutrophils # 5.8 K/mm3 (1.8-7.7) 09/25/21 05:24 PT 15.7 Sec. (12.2-14.9) H 09/25/21 05:24 INR 1.12 (0.87-1.13) 09/25/21 05:24 Sodium 144 mmol/L (137-145) 09/27/21 05:35 Potassium 4.0 mmol/L (3.6-5.0) 09/27/21 05:35 Chloride 107.5 mmol/L (98-107) H 09/27/21 05:35 Carbon Dioxide 25 mmol/L (22-30) 09/27/21 05:35 Anion Gap 16 mmol/L 09/27/21 05:35 BUN 23 mg/dL (7-17) H 09/27/21 05:35 Creatinine 1.2 mg/dL (0.6-1.2) 09/27/21 05:35 Estimated GFR 55 ml/min 09/27/21 05:35 BUN/Creatinine Ratio 19 % 09/27/21 05:35 Glucose 93 mg/dL (65-100) 09/27/21 05:35 Calcium 9.4 mg/dL (8.4-10.2) 09/27/21 05:35 Magnesium 2.10 mg/dL (1.7-2.3) 09/25/21 05:24 Total Bilirubin 0.20 mg/dL (0.1-1.2) 09/26/21 05:33 AST 21 units/L (5-40) 09/26/21 05:33 ALT 26 units/L (7-56) 09/26/21 05:33 Alkaline Phosphatase 120 units/L (35-129) 09/26/21 05:33 Troponin T < 0.010 ng/mL (0.00-0.029) 09/25/21 11:16 NT-Pro-B Natriuret Pep 5161 pg/mL (0-900) H 09/25/21 05:24 Total Protein 6.9 g/dL (6.3-8.2) 09/26/21 05:33 Albumin 2.9 g/dL (3.9-5) L 09/26/21 05:33 Albumin/Globulin Ratio 0.7 % 09/26/21 05:33 [place]el[place]/IV: Voiding Method Toilet Active Medications - Current Medications Current Medications: Generic Name Dose Route Start Last Admin Trade Name Freq PRN Reason Stop Dose Admin Acetaminophen 650 mg 09/25/21 09:00 Acetaminophen 325 Mg Tab PO Q4H PRN Pain MILD(1-3)/Fever >100.5/WARNER Al Hydrox/Mg Hydrox/Simethicone 30 ml 09/25/21 09:00 Alum-Mag Hydroxide-Simethicone [id number]/5ml Oral Liqd 30 Ml PO Q4H PRN Indigestion Albuterol 2.5 mg 09/25/21 09:00 Albuterol 2.5 Mg/3 Ml Nebu IH Q4HRT PRN Shortness Of Breath Aspirin 81 mg 09/25/21 10:00 09/26/21 11:23 Aspirin 81 Mg Tab Chew PO 81 mg QDAY HUMBERTO Administration Bisacodyl 10 mg 09/25/21 09:00 Bisacodyl 10 Mg Rect Supp [place] QDAY PRN Constipation unrelieved by MOM Carvedilol 12.5 mg 09/25/21 10:00 09/26/21 22:05 Carvedilol 12.5 Mg Tab PO 12.5 mg BID HUMBERTO Administration Enoxaparin Sodium 40 mg 09/25/21 10:00 09/26/21 12:26 Enoxaparin 40 Mg/0.4 Ml Inj SUB-Q 40 mg QDAY HUMBERTO Administration Furosemide 40 mg 09/26/21 11:00 09/27/21 05:29 Furosemide 20 Mg/2 Ml Inj IV 40 mg BID@0600,1800 HUMBERTO Administration Losartan Potassium 100 mg 09/26/21 15:00 09/27/21 08:14 Losartan 50 Mg Tab PO Not Given QDAY HUMBERTO Morphine Sulfate 4 mg 09/25/21 09:00 Morphine 4 Mg/1 Ml Inj IV Q4H PRN Pain , Severe (7-10) Naloxone HCl 0.1 mg 09/25/21 09:00 Naloxone 0.4 Mg/1 Ml Inj IV Q2MIN PRN Res Rate </= 8 or 02 SAT < 92% Nitroglycerin 0.4 mg 09/25/21 05:19 09/25/21 05:43 Nitroglycerin 0.4 Mg Tab Subl SL 0.4 mg .Q5MIN PRN Administration Chest Pain Ondansetron HCl 4 mg 09/25/21 09:00 Ondansetron 4 Mg/2 Ml Inj IV Q8H PRN Nausea And Vomiting Oxycodone/Acetaminophen 1 tab 09/25/21 09:00 Oxycodone /Acetaminophen 5-325mg Tab PO Q6H PRN Pain, Moderate (4-6) Potassium Chloride 20 meq 09/25/21 10:00 09/26/21 22:05 Potassium Chloride Er 20 Meq Tab PO 20 meq BID HUMBERTO Administration Sodium Chloride 10 ml 09/25/21 10:00 09/26/21 22:12 Sodium Chloride 0.9% 10 Ml Flush Syringe IV 10 ml BID HUMBERTO Administration Sodium Chloride 10 ml 09/25/21 09:00 Sodium Chloride 0.9% 10 Ml Flush Syringe IV PRN PRN LINE FLUSH Zolpidem Tartrate 5 mg 09/25/21 09:00 09/26/21 22:06 Zolpidem 5 Mg Tab PO 5 mg QHS PRN Administration Insomnia
[2021-09-27] MEDS: ENOXAPARIN 40 MG/0.4 ML INJ SUB-Q SCH (09:54)
[2021-09-27] MEDS: carvediloL 12.5 MG TAB PO SCH ×2 (09:55→21:34)
[2021-09-27] MEDS: POTASSIUM CHLORIDE ER 20 MEQ TAB PO SCH ×2 (09:55→21:37)
[2021-09-27] MEDS: ASPIRIN 81 MG TAB CHEW PO SCH (09:55)
[2021-09-27] MEDS ORDERED: SODIUM CHLORIDE 0.9% 500 ML 500 ML IV SCH (11:00)
--- NOTE | 2021-09-27 14:12 | Progress Note ---
Assessment and Plan Assessment: Acute HFrEF (Ef 15-20%) Chest Pain LBBB Hypertension Cardiographics: EKG 09/25/21: Sinus rhythm with left bundle branch block Chest x-ray: 09/25/21: Findings most likely indicate CHF as described Echocardiogram 09/26/2021: Left ventricle: The left ventricle is normal size. There is normal left ventricular wall thickness. Left ventricular ejection fraction is severely decreased. LVEF is 15 to 20%.Right ventricle: The right ventricle is normal size. Right ventricular systolic function is mildly reduced. Atria: Left atrium size is normal. Right atrium is mildly dilated. Tricuspid valve: Moderate tricuspid regurgitation. RSVP is 55 mmHg. Great vessels: The IVC is dilated. The IVC collapses less than 50% with inspiration. There appears to be echodensities in the IVC. Plan: Patient condition overall improving. Continue IV diuresis Continue GDMT (aspirin 81 mg, carvedilol 12.5 mg p.o. twice daily, Lasix 40 mg IV twice daily, losartan 100 mg p.o. daily) Strict I&O, Daily weight. Close monitoring of kidney fuction. Daily BMP Awaiting left heart cath for ischemic evaluation pending BMP results in a.m. Consent obtained. All questions answered and addressed. We will hold a.m. Lovenox for procedure and will restart after [facility] tomorrow. Patient seen in conjunction with Dr. Calle who agrees with the assessment and management of this patient. - Patient Problems (1) Acute HFrEF (heart failure with reduced ejection fraction) Current Visit: Yes Status: Acute (2) New onset of congestive heart failure Current Visit: Yes Status: Acute (3) Chest pain Current Visit: Yes Status: Acute (4) Hypertension Current Visit: Yes Status: Acute (5) Left bundle branch block Current Visit: Yes Status: Acute Subjective Date of service: 09/27/21 Principal diagnosis: SOB, HFrEF Interval history: Patient improving this morning. Denies shortness of breath or cardiac complaints. Seen sitting up resting comfortably in bed. Awaiting left heart cath in the morning pending tomorrow a.m. BMP. Telemetry: Sinus rhythm 70s with occasional PVCs Intake & Output 09/26/21 09/27/21 09/27/21 23:59 07:59 15:59 Intake Total 240 Balance 240 Weight 59.9 kg Objective Vital Signs Temp Pulse Pulse Resp BP Pulse Ox 09/27/21 12:01 97.9 F 76 18 118/86 99 09/27/21 10:00 69 18 96 09/27/21 08:06 97.5 F L 76 18 145/97 100 09/27/21 03:52 98.8 F 86 17 113/61 93 09/27/21 03:48 97.8 F 75 18 163/94 100 09/27/21 00:29 97.7 F 75 18 139/100 100 09/26/21 22:05 133/95 09/26/21 22:00 98 09/26/21 21:20 100 09/26/21 20:55 97.8 F 75 18 133/95 100 09/26/21 15:42 97.6 F 77 132/94 100 - Physical Examination General: Appears Well, No Apparent Distress HEENT: Positive: Normocephaly, Mucus Membranes Moist Neck: Positive: trachea midline Cardiac: Positive: Reg Rate and Rhythm, S1/S2 Lungs: Positive: Decreased Breath Sounds (Diminished posterior lower lobes) Neuro: Positive: Grossly Intact Abdomen: Positive: Unremarkable, Soft Skin: Positive: Clear. Negative: Rash Extremities: Present: upper extr. pulses (1+). Absent: edema - Labs and Meds Comprehensive Metabolic Panel 09/27/21 Range/Units 05:35 Sodium 144 (137-145) mmol/L Potassium 4.0 (3.6-5.0) mmol/L Chloride 107.5 H (98-107) mmol/L Carbon Dioxide 25 (22-30) mmol/L BUN 23 H (7-17) mg/dL Creatinine 1.2 (0.6-1.2) mg/dL Glucose 93 (65-100) mg/dL Calcium 9.4 (8.4-10.2) mg/dL - Imaging and Cardiology EKG: report reviewed Echo: report reviewed - Telemetry EKG Rhythm: Sinus Rhythm - EKG Sinus rhythms and dysrhythmias: sinus rhythm AV and intraventricular conduction: left bundle branch block - Allied health notes Allied health notes reviewed: nursing
[2021-09-27 15:06] LABS: Chol/HDL Ratio 3.52 %
[2021-09-27] MEDS: ZOLPIDEM 5 MG TAB PO PRN (21:34)
[2021-09-28] MEDS: FUROSEMIDE 20 MG/2 ML INJ IV SCH (05:57)
[2021-09-28 06:22] LABS: Basophils # (Auto) 0.1 K/mm3 (0.0-0.1); Basophils % (Auto) 1.2 % (0.0-1.8); Eosinophils # (Auto) 0.1 K/mm3 (0.0-0.4); Eosinophils % (Auto) 2.4 % (0.0-4.3); Hematocrit 34.6 % (30.3-42.9); Hemoglobin 10.6 gm/dl (10.1-14.3); Lymphocytes # (Auto) 1.7 K/mm3 (1.2-5.4); Lymphocytes % (Auto) 29.3 % (13.4-35.0); Mean Corpuscular HGB Conc 31 % (30-34); Mean Corpuscular Volume 79 fl (79-97); Monocytes # (Auto) 0.5 K/mm3 (0.0-0.8); Monocytes % (Auto) 9.6 % (0.0-7.3); Platelet Count 292 K/mm3 (140-440); Red Blood Count 4.38 M/mm3 (3.65-5.03); Red Cell Distribution Width 17.6 % (13.2-15.2)
[2021-09-28 06:30] LABS: INR 0.99 (0.87-1.13)
[2021-09-28 06:31] LABS: Partial Thromboplastin Time 29.2 Sec. (24.2-36.6)
[2021-09-28 06:43] LABS: Calcium 9.4 mg/dL (8.4-10.2)
[2021-09-28] MEDS ORDERED: HEPARIN 10,000 UNITS/10 ML VIAL ONE (08:03)
[2021-09-28] MEDS ORDERED: NITROGLYCERIN SYRINGE 3 ML ONE (08:04)
[2021-09-28] MEDS ORDERED: VERAPAMIL 5 MG/2 ML INJ ONE (08:33)
[2021-09-28] MEDS: ASPIRIN 81 MG TAB CHEW PO SCH ×2 (08:35→19:04)
[2021-09-28] MEDS: SODIUM CHLORIDE 0.9% 500 ML 500 ML ONE ×2 (08:50→09:19)
[2021-09-28] MEDS: HEPARIN/NS 5000 UNIT/500ML 1,000 ML IR ONE ×2 (08:50→09:30)
[2021-09-28] MEDS ORDERED: MIDAZOLAM 2 MG/2 ML INJ ONE (08:59)
[2021-09-28] MEDS ORDERED: fentaNYL 100 MCG/2 ML INJ ONE (09:00)
[2021-09-28] MEDS: VERAPAMIL 5 MG/2 ML INJ ONE ×2 (09:18→09:30)
[2021-09-28] MEDS: LIDOCAINE (1%) 10 MG/1 ML VIAL 20 ML MDV ONE ×2 (09:18→09:26)
--- NOTE | 2021-09-28 10:25 | Prelim Cardiac Cath Report ---
Preliminary Cath Report - Hemodynamic Findings Aorta(AO): 132/89 mm hg Left Ventricular(LV): 132/27 mm hg End Diastolic Pressure(EDP): 27 mm hg - Other Findings Estimated blood loss: none Dominance: right Estimated Ejection Fraction: 20 (Severely decreased.Diffuse hypokinesis noted.) LV Contractility: severe global hypokinesis noted. Coronary Anatomy: Coronary anatomy: Right coronary artery is a dominant vessel, arises normally from the right coronary cusp, shows mild diffuse irregularities. Left coronary artery: Arises somewhat anomalously from the bottom of the left coronary cusp. Difficult to engage artery selectively. However overall only mild irregularities noted. Left main appears to be short, LAD and its branches show mild irregularities. LAD curves around the apex. Circumflex artery relatively small artery, is showing only minimal irregularities. Collaterals: None. Post Diagnosis: Severe left ventricular systolic dysfunction noted. Ejection fraction was felt to be 15 to 20%. Only very mild coronary disease documented. Considering the above findings, would continue risk factor modification and aggressive medical therapy. Recommendations: medical therapy
[2021-09-28] MEDS ORDERED: HYDROcodone/ACETAMINOPHEN 5-325 MG TAB PO PRN (11:00)
[2021-09-28] MEDS ORDERED: traMADol 50 MG TAB PO PRN (11:00)
[2021-09-28] MEDS: POTASSIUM CHLORIDE ER 20 MEQ TAB PO SCH ×2 (11:02→21:06)
[2021-09-28] MEDS: carvediloL 12.5 MG TAB PO SCH ×2 (11:02→21:06)
[2021-09-28] MEDS: LOSARTAN 50 MG TAB PO SCH (11:02)
--- NOTE | 2021-09-28 13:16 | Progress Note ---
Assessment and Plan Assessment and plan: History of present illness: Patient 66-year-old with a history of hypertension has been noncompliant pr esents with a 3-day history of atypical chest pain associated with shortness of breath. Patient's pain described as 6-8 out of 10 right-sided. No alleviating or aggravating symptoms. No radiation in pain. Patient does give symptoms of shortness of breath as well as shortness of breath when she lays down. 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 Patient states that she feels weaker when she gets around such as doing her groceries and performing all of her ADLs. Has noticed something different. During presentation friend at bedside. States patient has been doing this for approximately 1 week. Patient has somewhat pressured speech consistent with anxiety. Patient does not want to stay in the hospital wants to be discharged secondary to what she states is tax season. I did discuss the severity of patient's illness and etiology and she is willing to stay. Patient denies any recent sick contacts. Does state her father passed from congestive heart failure and that is when the reasons why she is staying. Patient denies any side high salt diet. Denies any high sodium foods. Denies any major swelling on lower extremities however states after a long day her ankles and legs will become swollen. She denies any syncope. Hospital course: 09/26/2021. Echocardiogram reveals left ventricular normal size with EF severely decreased. There is severe global hypokinesis and mild diastolic dysfunction. LVEF 15-20% ischemic evaluation per cardiology recommendations. Await cardiology consultation. The patient's blood pressure is still elevated diastolically. We will increase Cozaar to 100 mg daily. 09/27/2021: Discussed with cardiology. Plan is for ischemic evaluation with left heart cath tomorrow morning. 09/28/2021: S/p cardiac cath, cath report findings noted, no severe obstructive CAD noted however LV function is still compromised, LVEF: 15-20% on on LV gram. Will observe overnight, likely early d/c tomorrow Am. Assessment and Plan: #Acute combined systolic and diastolic heart failure. NT proBNP 5161. Echo this admission demonstrates LVEF 10-15%. Continue GDMT with Lasix IV twice daily, Coreg, losartan. Cardiology following. Ischemic evaluation with [facility] on 09/28 for newly discovered HFrEF #Chest pain, resolved. Troponins negative x2. Aspirin 81 mg p.o. daily, lipid panel ordered #Hypertensive urgency. Coreg, losartan, Lasix #Essential hypertension, hypertensive agents as above #Left bundle branch block, noted on EKG this admission #Hyperglycemia, elevated blood sugar noted. Hemoglobin A1c ordered #Advance care planning Disease education conducted, care plan discussed, diagnoses discussed, prognosis discussed, patient is full code, patient acknowledges understanding and agree with care plan, +30 minutes. History Interval history: No acute complaints. Plan for cath this Am. Hospitalist Physical - Physical exam Narrative exam: Physical Exam: VITAL SIGNS: Reviewed. GENERAL: The patient appears normally developed, Vital signs as documented. HEAD: No signs of head trauma. EYES: Pupils are equal. Extraocular motions intact. EARS: Hearing grossly intact. MOUTH: Oropharynx is normal. NECK: No adenopathy, no JVD. CHEST: Chest with clear breath sounds bilaterally. No wheezes, rales, or rhonchi. CARDIAC: Regular rate and rhythm. S1 and S2, without murmurs, gallops, or rubs. VASCULAR: No Edema. Peripheral pulses normal and equal in all extremities. ABDOMEN: Soft, non tender and non distended. No rebound or guarding, and no masses palpated. Bowel Sounds normal. MUSCULOSKELETAL: Good range of motion of all major joints. Extremities without clubbing, cyanosis or edema. NEUROLOGIC EXAM: Alert and oriented x 4. no focal sensory or strength deficits. PSYCHIATRIC: Mood normal. SKIN: detail exam as documented in skin assessment - Constitutional Vitals: Temp Pulse Resp BP Pulse Ox 98.6 F 68 18 111/65 100 09/28/21 11:37 09/28/21 12:31 09/28/21 11:20 09/28/21 12:33 09/28/21 12:31 General appearance: Present: no acute distress HEART Score - HEART Score EKG: Non-specific Age: 45-65 Risk factors: 1-2 risk factors Troponin: Troponin T < 0.010 ng/mL (0.00-0.029) 09/25/21 11:16 Troponin: < normal limit Results - Labs CBC & Chem 7: 09/28/21 05:23 09/28/21 05:23 Labs: Laboratory Last Values WBC 5.7 K/mm3 (4.5-11.0) 09/28/21 05:23 RBC 4.38 M/mm3 (3.65-5.03) 09/28/21 05:23 Hgb 10.6 gm/dl (10.1-14.3) 09/28/21 05:23 Hct 34.6 % (30.3-42.9) 09/28/21 05:23 MCV 79 fl (79-97) 09/28/21 05:23 MCH 24 pg (28-32) L 09/28/21 05:23 MCHC 31 % (30-34) 09/28/21 05:23 RDW 17.6 % (13.2-15.2) H 09/28/21 05:23 Plt Count 292 K/mm3 (140-440) 09/28/21 05:23 Lymph % (Auto) 29.3 % (13.4-35.0) 09/28/21 05:23 [place] % (Auto) 9.6 % (0.0-7.3) H 09/28/21 05:23 Eos % (Auto) 2.4 % (0.0-4.3) 09/28/21 05:23 Baso % (Auto) 1.2 % (0.0-1.8) 09/28/21 05:23 Lymph # (Auto) 1.7 K/mm3 (1.2-5.4) 09/28/21 05:23 [place] # (Auto) 0.5 K/mm3 (0.0-0.8) 09/28/21 05:23 Eos # (Auto) 0.1 K/mm3 (0.0-0.4) 09/28/21 05:23 Baso # (Auto) 0.1 K/mm3 (0.0-0.1) 09/28/21 05:23 Seg Neutrophils % 57.5 % (40.0-70.0) 09/28/21 05:23 Seg Neutrophils # 3.3 K/mm3 (1.8-7.7) 09/28/21 05:23 PT 14.2 Sec. (12.2-14.9) 09/28/21 05:23 INR 0.99 (0.87-1.13) 09/28/21 05:23 APTT 29.2 Sec. (24.2-36.6) 09/28/21 05:23 Sodium 143 mmol/L (137-145) 09/28/21 05:23 Potassium 4.2 mmol/L (3.6-5.0) 09/28/21 05:23 Chloride 105.6 mmol/L (98-107) 09/28/21 05:23 Carbon Dioxide 26 mmol/L (22-30) 09/28/21 05:23 Anion Gap 16 mmol/L 09/28/21 05:23 BUN 26 mg/dL (7-17) H 09/28/21 05:23 Creatinine 1.2 mg/dL (0.6-1.2) 09/28/21 05:23 Estimated GFR 55 ml/min 09/28/21 05:23 BUN/Creatinine Ratio 22 % 09/28/21 05:23 Glucose 96 mg/dL (65-100) 09/28/21 05:23 Hemoglobin A1c 6.0 % (4-6) 09/27/21 05:35 Calcium 9.4 mg/dL (8.4-10.2) 09/28/21 05:23 Magnesium 2.10 mg/dL (1.7-2.3) 09/25/21 05:24 Total Bilirubin 0.20 mg/dL (0.1-1.2) 09/26/21 05:33 AST 21 units/L (5-40) 09/26/21 05:33 ALT 26 units/L (7-56) 09/26/21 05:33 Alkaline Phosphatase 120 units/L (35-129) 09/26/21 05:33 Troponin T < 0.010 ng/mL (0.00-0.029) 09/25/21 11:16 NT-Pro-B Natriuret Pep 5161 pg/mL (0-900) H 09/25/21 05:24 Total Protein 6.9 g/dL (6.3-8.2) 09/26/21 05:33 Albumin 2.9 g/dL (3.9-5) L 09/26/21 05:33 Albumin/Globulin Ratio 0.7 % 09/26/21 05:33 Triglycerides 81 mg/dL (2-149) 09/27/21 05:35 Cholesterol 127 mg/dL (50-199) 09/27/21 05:35 LDL Cholesterol Direct 79 mg/dL (50-130) 09/27/21 05:35 HDL Cholesterol 36 mg/dL (40-59) L 09/27/21 05:35 Cholesterol/HDL Ratio 3.52 % 09/27/21 05:35 Blood Type O POSITIVE 09/28/21 05:27 Antibody Screen Negative 09/28/21 05:27 [place]/IV: Voiding Method Toilet Active Medications - Current Medications Current Medications: Generic Name Dose Route Start Last Admin Trade Name Freq PRN Reason Stop Dose Admin Acetaminophen 650 mg 09/25/21 09:00 Acetaminophen 325 Mg Tab PO Q4H PRN Pain MILD(1-3)/Fever >100.5/WARNER Hydrocodone Bitart/Acetaminophen 1 each 09/28/21 11:00 Hydrocodone/Acetaminophen 5-325 Mg Tab PO Q4H PRN Pain, Moderate (4-6) Al Hydrox/Mg Hydrox/Simethicone 30 ml 09/25/21 09:00 Alum-Mag Hydroxide-Simethicone [phone]/5ml Oral Liqd 30 Ml PO Q4H PRN Indigestion Albuterol 2.5 mg 09/25/21 09:00 Albuterol 2.5 Mg/3 Ml Nebu IH Q4HRT PRN Shortness Of Breath Aspirin 81 mg 09/25/21 10:00 09/28/21 08:35 Aspirin 81 Mg Tab Chew PO 81 mg QDAY HUMBERTO Administration Bisacodyl 10 mg 09/25/21 09:00 Bisacodyl 10 Mg Rect Supp CO QDAY PRN Constipation unrelieved by MOM Carvedilol 12.5 mg 09/25/21 10:00 09/28/21 11:02 Carvedilol 12.5 Mg Tab PO 12.5 mg BID HUMBERTO Administration Furosemide 40 mg 09/26/21 11:00 09/28/21 05:57 Furosemide 20 Mg/2 Ml Inj IV 40 mg BID@0600,1800 HUMBERTO Administration Losartan Potassium 100 mg 09/26/21 15:00 09/28/21 11:02 Losartan 50 Mg Tab PO 100 mg QDAY HUMBERTO Administration Morphine Sulfate 4 mg 09/25/21 09:00 Morphine 4 Mg/1 Ml Inj IV Q4H PRN Pain , Severe (7-10) Naloxone HCl 0.1 mg 09/25/21 09:00 Naloxone 0.4 Mg/1 Ml Inj IV Q2MIN PRN Res Rate </= 8 or 02 SAT < 92% Nitroglycerin 0.4 mg 09/25/21 05:19 09/25/21 05:43 Nitroglycerin 0.4 Mg Tab Subl SL 0.4 mg .Q5MIN PRN Administration Chest Pain Ondansetron HCl 4 mg 09/25/21 09:00 Ondansetron 4 Mg/2 Ml Inj IV Q8H PRN Nausea And Vomiting Potassium Chloride 20 meq 09/25/21 10:00 09/28/21 11:02 Potassium Chloride Er 20 Meq Tab PO 20 meq BID HUMBERTO Administration Sodium Chloride 10 ml 09/25/21 10:00 09/28/21 11:03 Sodium Chloride 0.9% 10 Ml Flush Syringe IV 10 ml BID HUMBERTO Administration Sodium Chloride 10 ml 09/25/21 09:00 Sodium Chloride 0.9% 10 Ml Flush Syringe IV PRN PRN LINE FLUSH Tramadol HCl 50 mg 09/28/21 11:00 Tramadol 50 Mg Tab PO Q4H PRN Pain, Mild (1-3) Zolpidem Tartrate 5 mg 09/25/21 09:00 09/27/21 21:34 Zolpidem 5 Mg Tab PO 5 mg QHS PRN Administration Insomnia
--- NOTE | 2021-09-28 15:15 | Progress Note ---
Assessment and Plan Assessment: Acute HFrEF (Ef 15-20%) Chest Pain LBBB Hypertension Cardiographics: EKG 09/25/21: Sinus rhythm with left bundle branch block Chest x-ray: 09/25/21: Findings most likely indicate CHF as described Echocardiogram 09/26/2021: Left ventricle: The left ventricle is normal size. There is normal left ventricular wall thickness. Left ventricular ejection fraction is severely decreased. LVEF is 15 to 20%.Right ventricle: The right ventricle is normal size. Right ventricular systolic function is mildly reduced. Atria: Left atrium size is normal. Right atrium is mildly dilated. Tricuspid valve: Moderate tricuspid regurgitation. RSVP is 55 mmHg. Great vessels: The IVC is dilated. The IVC collapses less than 50% with inspiration. There appears to be echodensities in the IVC. Plan: Left heart cath revealed only mild coronary disease. Medical management. EF felt to be 15 to 20% Patient condition overall improved Continue GDMT (aspirin 81 mg, carvedilol 12.5 mg p.o. twice daily, Lasix 40 mg PO twice daily, losartan 100 mg p.o. daily) Strict I&O, Daily weight. Close monitoring of kidney fuction. Daily BMP Lovenox for DVT prophylaxis restarted Education provided on the importance of fluid restriction, dietary, and medication compliance. Follow-up appointment made 10/21/2021 at 2:15 in our [place] office with Dr. Calle Patient seen in conjunction with Dr. Calle who agrees with the assessment and management of this patient. - Patient Problems (1) Acute HFrEF (heart failure with reduced ejection fraction) Current Visit: Yes Status: Acute (2) New onset of congestive heart failure Current Visit: Yes Status: Acute (3) Chest pain Current Visit: Yes Status: Acute (4) Hypertension Current Visit: Yes Status: Acute (5) Left bundle branch block Current Visit: Yes Status: Acute Subjective Date of service: 09/28/21 Principal diagnosis: SOB, HFrEF Interval history: Patient feeling much better today. Denies cardiac complaints. Telemetry: Sinus rhythm 70s Objective Vital Signs Temp Pulse Pulse Resp Resp BP BP 09/28/21 12:33 111/65 09/28/21 12:32 111/65 09/28/21 12:31 68 09/28/21 12:00 70 09/28/21 11:37 98.6 F 69 112/67 09/28/21 11:20 97.6 F 74 18 122/75 09/28/21 11:16 65 09/28/21 11:15 66 09/28/21 11:02 122/86 09/28/21 10:45 18 122/86 09/28/21 10:00 76 18 09/28/21 04:25 98.2 F 72 16 125/81 09/28/21 04:00 89 09/27/21 22:52 98.0 F 77 16 130/94 09/27/21 22:00 75 17 09/27/21 21:17 09/27/21 20:00 75 09/27/21 19:21 97.4 F L 75 16 115/71 09/27/21 15:52 97.9 F 72 18 120/84 Pulse Ox 09/28/21 12:33 09/28/21 12:32 09/28/21 12:31 100 09/28/21 12:00 09/28/21 11:37 100 09/28/21 11:20 98 09/28/21 11:16 91 09/28/21 11:15 92 09/28/21 11:02 09/28/21 10:45 09/28/21 10:00 98 09/28/21 04:25 100 09/28/21 04:00 09/27/21 22:52 100 09/27/21 22:00 97 09/27/21 21:17 98 09/27/21 20:00 09/27/21 19:21 100 09/27/21 15:52 100 - Physical Examination General: Appears Well, No Apparent Distress HEENT: Positive: Normocephaly, Mucus Membranes Moist Neck: Positive: trachea midline Cardiac: Positive: Reg Rate and Rhythm, S1/S2 Lungs: Positive: clear to auscultation Neuro: Positive: Grossly Intact Abdomen: Positive: Unremarkable, Soft Skin: Positive: Clear. Negative: Rash Incision: Cardiac Cath Site (Right radial cath site still with TR band in place. No hematoma noted. Bedside RN noted some bleeding so some air was placed back in TR band.) Extremities: Present: upper extr. pulses (1+). Absent: edema - Labs and Meds Coagulation 09/28/21 Range/Units 05:23 PT 14.2 (12.2-14.9) Sec. INR 0.99 (0.87-1.13) APTT 29.2 (24.2-36.6) Sec. CBC 09/28/21 Range/Units 05:23 WBC 5.7 (4.5-11.0) K/mm3 RBC 4.38 (3.65-5.03) M/mm3 Hgb 10.6 (10.1-14.3) gm/dl Hct 34.6 (30.3-42.9) % Plt Count 292 (140-440) K/mm3 Lymph # (Auto) 1.7 (1.2-5.4) K/mm3 [place] # (Auto) 0.5 (0.0-0.8) K/mm3 Eos # (Auto) 0.1 (0.0-0.4) K/mm3 Baso # (Auto) 0.1 (0.0-0.1) K/mm3 Comprehensive Metabolic Panel 09/28/21 Range/Units 05:23 Sodium 143 (137-145) mmol/L Potassium 4.2 (3.6-5.0) mmol/L Chloride 105.6 (98-107) mmol/L Carbon Dioxide 26 (22-30) mmol/L BUN 26 H (7-17) mg/dL Creatinine 1.2 (0.6-1.2) mg/dL Glucose 96 (65-100) mg/dL Calcium 9.4 (8.4-10.2) mg/dL - Imaging and Cardiology EKG: report reviewed Echo: report reviewed Cardiac cath: report reviewed - Telemetry EKG Rhythm: Sinus Rhythm - EKG Sinus rhythms and dysrhythmias: sinus rhythm AV and intraventricular conduction: left bundle branch block - Allied health notes Allied health notes reviewed: nursing
[2021-09-28] MEDS ORDERED: FUROSEMIDE 40 MG TAB PO SCH (18:00)
[2021-09-28] MEDS: ZOLPIDEM 5 MG TAB PO PRN (23:13)
[2021-09-29 08:29] LABS: BUN/Creatinine Ratio 21; Blood Urea Nitrogen 23 mg/dL (7-17); Hemolysis Index 6
--- NOTE | 2021-09-29 08:47 | Discharge Summary ---
Providers - Providers Date of Admission: 09/25/21 09:00 Attending physician: KAISER DAI MD 09/25/21 06:51 Consult to Physician [CONS] Urgent Comment: Consulting Provider: LACHO MORAN Physician Instructions: Reason For Exam: new onset chf/pulmonary edema 09/28/21 10:18 Consult to Cardiac Rehabilitation [CONS] Routine Reason For Exam: Cardiac Rehab Evaluation Primary care physician: JEANETTE MILLER Hospitalization Reason for admission: chest pain, sob Condition: Stable Hospital course: History of present illness: Patient 66-year-old with a history of hypertension has been noncompliant presents with a 3-day history of atypical chest pain associated with shortness of breath. Patient's pain described as 6-8 out of 10 right-sided. No alleviating or aggravating symptoms. No radiation in pain. Patient does give symptoms of shortness of breath as well as shortness of breath when she lays down. 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 Patient states that she feels weaker when she gets around such as doing her groceries and performing all of her ADLs. Has noticed something different. During presentation friend at bedside. States patient has been doing this for approximately 1 week. Patient has somewhat pressured speech consistent with anxiety. Patient does not want to stay in the hospital wants to be discharged secondary to what she states is tax season. I did discuss the severity of patient's illness and etiology and she is willing to stay. Patient denies any recent sick contacts. Does state her father passed from congestive heart failure and that is when the reasons why she is staying. Patient denies any side high salt diet. Denies any high sodium foods. Denies any major swelling on lower extremities however states after a long day her ankles and legs will b ecome swollen. She denies any syncope. Hospital course: 09/26/2021. Echocardiogram reveals left ventricular normal size with EF severely decreased. There is severe global hypokinesis and mild diastolic dysfunction. LVEF 15-20% ischemic evaluation per cardiology recommendations. Await cardiology consultation. The patient's blood pressure is still elevated diastolically. We will increase Cozaar to 100 mg daily. 09/27/2021: Discussed with cardiology. Plan is for ischemic evaluation with left heart cath tomorrow morning. 09/28/2021: S/p cardiac cath, cath report findings noted, no severe obstructive CAD noted however LV function is still compromised, LVEF: 15-20% on on LV gram. Will observe overnight, likely early d/c tomorrow Am. 09/29: Discharge home. Will send paitent home with rx for aspirin, coreg, losartan, and lasix. Patient was advised to follow up with pcp and cardiology as OP. Assessment and Plan: #Acute combined systolic and diastolic heart failure. NT proBNP 5161. Echo this admission demonstrates LVEF 10-15%. Continue GDMT with Lasix IV twice daily, Coreg, losartan. Cardiology following. Ischemic evaluation with [facility] on 09/28 for newly discovered HFrEF #Chest pain, resolved. Troponins negative x2. Aspirin 81 mg p.o. daily, lipid panel ordered #Hypertensive urgency. Coreg, losartan, Lasix #Essential hypertension, hypertensive agents as above #Left bundle branch block, noted on EKG this admission #Hyperglycemia, elevated blood sugar noted. Hemoglobin A1c ordered #Advance care planning Disease education conducted, care plan discussed, diagnoses discussed, prognosis discussed, patient is full code, patient acknowledges understanding and agree with care plan, +30 minutes. Disposition: HOME / SELF CARE / HOMELESS Final Discharge Diagnosis (Prints w/discharge instructions): Nonischemic cardiomyopathy Time spent for discharge: 35 Core Measure Documentation - Palliative Care Palliative Care/ Comfort Measures: Not Applicable - Core Measures Any of the following diagnoses?: heart failure - Heart Failure Discharge Requirements CAITIE/ARB for LVSD if EF <40%: Yes Beta beckie at discharge: Yes Exam - Constitutional Vitals: Temp Pulse Resp BP Pulse Ox 98.1 F 74 18 138/93 100 09/29/21 07:27 09/29/21 07:27 09/29/21 07:27 09/29/21 07:27 09/29/21 07:27 Plan Follow up with: JEANETTE MILLER MD [Primary Care Provider] - 7 Days Prescriptions: Aspirin [Aspirin BABY CHEW TAB] 81 mg PO QDAY 30 Days #30 tab.chew carvediloL [Coreg] 12.5 mg PO BID 30 Days #60 tablet Losartan [Cozaar] 100 mg PO QDAY 30 Days #30 tablet Furosemide [Lasix TAB] 40 mg PO QDAY 30 Days #30 tablet
[2021-09-29] MEDS: LOSARTAN 50 MG TAB PO SCH (09:39)
[2021-09-29] MEDS: ASPIRIN 81 MG TAB CHEW PO SCH (09:39)
[2021-09-29] MEDS: carvediloL 12.5 MG TAB PO SCH (09:40)
[2021-09-29] MEDS: POTASSIUM CHLORIDE ER 20 MEQ TAB PO SCH (09:40)
[2021-09-29] MEDS ORDERED: ENOXAPARIN 30 MG/0.3 ML INJ SUB-Q SCH (10:00)
[2021-09-29] MEDS ORDERED: FUROSEMIDE 40 MG TAB PO SCH (10:00)
--- NOTE | 2021-09-29 10:24 | Electrocardiograph Report ---
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
--- NOTE | 2021-09-29 12:31 | Progress Note ---
Assessment and Plan Acute HFrEF (Ef 15-20%) Chest Pain LBBB Hypertension Echocardiogram 09/26/2021: Left ventricle: The left ventricle is normal size. There is normal left ventricular wall thickness. Left ventricular ejection fraction is severely decreased. LVEF is 15 to 20%.Right ventricle: The right ventricle is normal size. Right ventricular systolic function is mildly reduced. Left atrium size is normal. Right atrium is mildly dilated. Tricuspid valve: Moderate tricuspid regurgitation. RSVP is 55 mmHg. Plan: Left heart cath revealed only mild coronary disease. Medical management. EF felt to be 15 to 20% Continue GDMT (aspirin 81 mg, carvedilol 12.5 mg p.o. twice daily, Lasix 40 mg PO daily, losartan 100 mg p.o. daily) Education provided on the importance of fluid restriction, dietary, and medication compliance. Patient verbalized acknowledgment understanding Cardiac status otherwise stable Patient has a follow-up appointment on 10/21/2021 at 2:15 in our [place] office with Dr. Calle Patient seen in conjunction with Dr. Calle who agrees with the assessment and management of this patient. - Patient Problems (1) Acute HFrEF (heart failure with reduced ejection fraction) Current Visit: Yes Status: Acute (2) Hypertension Current Visit: Yes Status: Acute (3) Left bundle branch block Current Visit: Yes Status: Acute Subjective Date of service: 09/29/21 Principal diagnosis: SOB, HFrEF Interval history: Patient sitting in bed in no acute distress. Patient reports feeling well today and is eager to go home Patient is sinus 70s on monitor with no event Objective Vital Signs Temp Pulse Resp BP BP Pulse Ox 09/29/21 10:00 18 98 09/29/21 07:27 98.1 F 74 18 138/93 100 09/29/21 04:00 71 09/29/21 03:51 97.5 F L 18 131/100 09/29/21 03:00 74 100 09/28/21 23:44 97.8 F 76 16 137/92 99 09/28/21 22:00 18 98 09/28/21 21:53 100 09/28/21 20:00 73 09/28/21 19:16 97.8 F 70 16 99/67 99 09/28/21 16:23 98.0 F 71 18 109/79 97 09/28/21 15:14 111/65 04/06/22 14:00 97.8 F 70 18 114/65 96 09/28/21 13:00 97.8 F 68 18 112/68 96 09/28/21 12:33 111/65 09/28/21 12:32 111/65 09/28/21 12:31 68 100 - Physical Examination General: Appears Well, No Apparent Distress HEENT: Positive: Normocephaly, Mucus Membranes Moist Neck: Positive: trachea midline Cardiac: Positive: Reg Rate and Rhythm Lungs: Positive: clear to auscultation, Normal Breath Sounds Neuro: Positive: Grossly Intact Abdomen: Positive: Unremarkable, Soft Skin: Positive: Clear. Negative: Rash Incision: Cardiac Cath Site (Right radial cath site still with TR band in place. No hematoma noted. Bedside RN noted some bleeding so some air was placed back in TR band.) Extremities: Present: upper extr. pulses (1+). Absent: edema - Labs and Meds Comprehensive Metabolic Panel 09/29/21 Range/Units 07:35 Sodium 140 (137-145) mmol/L Potassium 4.8 (3.6-5.0) mmol/L Chloride 101.1 (98-107) mmol/L Carbon Dioxide 29 (22-30) mmol/L BUN 23 H (7-17) mg/dL Creatinine 1.1 (0.6-1.2) mg/dL Glucose 95 (65-100) mg/dL Calcium 10.0 (8.4-10.2) mg/dL - Imaging and Cardiology EKG: report reviewed Echo: report reviewed Cardiac cath: report reviewed - Telemetry EKG Rhythm: Sinus Rhythm - EKG Sinus rhythms and dysrhythmias: sinus rhythm AV and intraventricular conduction: left bundle branch block - Allied health notes Allied health notes reviewed: nursing
[2021-09-29 15:24] VITALS: BP 120/82
[2021-09-30] MEDS ORDERED: ENOXAPARIN 40 MG/0.4 ML INJ SUB-Q SCH (10:00)
--- NOTE | 2021-09-30 10:25 | Cardiac Catherization Report ---
DATE OF SERVICE: 09/28/2021 CARDIAC CATHETERIZATION REPORT INDICATIONS: The patient is a 66-year-old female was admitted with diagnosis of congestive heart failure and her ejection fraction was found to be markedly decreased in the range of 15-20%, the echocardiogram. Because of low LV systolic function, diagnostic cardiac catheterization was recommended. This is the first new onset heart failure. The patient is agreeable with the plan. The patient is aware of the procedure, potential complications, and alternatives of therapy available. DESCRIPTION OF PROCEDURE: The patient was brought to the catheterization laboratory in a fasting condition. The patient was evaluated for moderate sedation and was felt to be an appropriate candidate for moderate sedation, was given IV Versed and fentanyl. The patient was prepared in a standard fashion with sterile drapes. Local anesthesia was given in the right wrist area and right radial artery puncture was made using 21-gauge arterial puncture needle. The patient received 5 mg of intra-arterial verapamil and 3000 units of intravenous heparin. Subsequently, using 5-[place] multipurpose catheter, left ventriculogram was performed in CEVALLOS projection using hand injection. Subsequently, angiograms of the right coronary artery were obtained using 5-[place] JR4 catheter. However, difficult to selectively cannulate the left coronary artery. Multiple catheters were used. A diagnostic angiograms were obtained. Subsequently, at the end of the procedure, catheter and sheath were removed and good hemostasis was achieved with application of radial band. The patient was monitored throughout the procedure with EKG monitoring, pulse oximetry and hemodynamic monitoring. The patient's moderate sedation monitoring started at 9:22 a.m. and ended at 10:04 a.m. At the end of the procedure, the patient is communicating normally, breathing normally with no focal deficits. The patient was transferred to the room in stable condition. Following findings were noted. 1. Left ventriculogram done in CEVALLOS projection shows dilated left ventricle with ejection fraction of 15-20%. End-diastolic pressure is elevated up to 27 mmHg. Diffuse global hypokinesis was noted. Mitral regurgitation could not be evaluated because of limited amount of dye injected. 2. Right coronary artery arises normally from right coronary cusp. This is dominant vessel and showed minimal irregularities. Left coronary artery arising somewhat from the bottom of the left coronary cusp and difficult to engage selectively. Overall, diagnostic angiograms were obtained and this showed only very mild disease. Left main, LAD and its branches and circumflex artery and its branches show only mild irregularities. COLLATERALS: None. FINAL IMPRESSION: 1. Dilated left ventricle with severe diffuse hypokinesis with ejection fraction of 15-20%, end diastolic pressure of 27 mmHg. 2. Mild coronary artery disease. At this time, considering the above angiographic pictures, the patient would be continued guideline directed medical therapy for her congestive heart failure and risk factor modification for her coronary artery disease. The patient was explained of the procedure. The patient was transferred to the room in stable condition. TID: [id number] RECEIPT: [id number] GWEN/MICHAEL LEVI
== END 2021-09-29 15:55 | disposition home or self-care (01) | DRG 286 ==
LOC: ED 05:11 → 4A 09:00
PROVIDERS: ADMIT Internal Medicine; ATTEND Internal Medicine
PROC: 4A023N7 Measurement of Cardiac Sampling and Pressure, Left Heart, Percutaneous Approach (ICD-10-PCS; principal; 2021-09-28)
PROC: B2111ZZ Fluoroscopy of Multiple Coronary Arteries using Low Osmolar Contrast (ICD-10-PCS; 2021-09-28)
PROC: B2151ZZ Fluoroscopy of Left Heart using Low Osmolar Contrast (ICD-10-PCS; 2021-09-28)
DX: I11.0 Hypertensive heart disease with heart failure (principal); I50.41 Acute combined systolic (congestive) and diastolic (congestive) heart failure; I44.7 Left bundle-branch block, unspecified; I16.0 Hypertensive urgency; R73.9 Hyperglycemia, unspecified; F17.210 Nicotine dependence, cigarettes, uncomplicated; Z82.49 Family history of ischemic heart disease and other diseases of the circulatory system; I42.8 Other cardiomyopathies
CPT/HCPCS: 36415; 71045; 80048; 80053; 80061; 83036; 83735; 83880; 84484; 85025; 85610; 85730; 86850; 86900; 86901; 93005; 93306; 93458; 94760; 99406; G0378; J1815; J3490; C1887; C1894; C8929; J1644; J1650; J1940; J2060; J2250; J2270; J3010; J7040; Q9967

== ENCOUNTER 2021-10-19 19:21 | Inpatient (IN) | payer SELFPAY ==
--- NOTE | 2021-10-19 20:34 | Emergency Department Report ---
ED General Adult HPI - General Chief complaint: Dyspnea/Respdistress Stated complaint: HEART CAN'T BREATH Time Seen by Provider: 10/19/21 20:09 Source: patient, RN notes reviewed, old records reviewed Mode of arrival: Ambulatory Limitations: Physical Limitation - History of Present Illness Initial comments: This is a pleasant 66-year-old female. Her past medical history includes congestive heart failure, EF of 15 to 20%, recently admitted to this hospital for acute decompensated congestive heart failure. She had a cardiac catheterization which demonstrated minimal coronary artery disease. Guideline directed medical therapy is recommended for congestive heart failure, with risk factor modification for coronary artery disease. 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 She presents to the ER today with a complaint of acute painless shortness of breath. She states it feels like a recent episode of congestive heart failure. She endorses medication compliance, and denies dietary indiscretions. -: Sudden Consistency: constant Improves with: rest Worsens with: movement, other (Laying flat) Associated Symptoms: shortness of breath - Related Data Previous Rx's Medication Instructions Recorded Last Taken Type Aspirin [Aspirin BABY CHEW TAB] 81 mg PO QDAY 30 Days #30 tab.chew 09/29/21 Unknown Rx Furosemide [Lasix TAB] 40 mg PO QDAY 30 Days #30 tablet 09/29/21 Unknown Rx Losartan [Cozaar] 100 mg PO QDAY 30 Days #30 tablet 09/29/21 Unknown Rx carvediloL [Coreg] 12.5 mg PO BID 30 Days #60 tablet 09/29/21 Unknown Rx Allergies Allergy/AdvReac Type Severity Reaction Status Date / Time No Known Allergies Allergy Verified 10/19/21 19:36 ED Review of Systems ROS: Stated complaint: HEART CAN'T BREATH Other details as noted in HPI Constitutional: malaise. denies: fever Eyes: denies: eye discharge ENT: denies: congestion Respiratory: orthopnea, shortness of breath, SOB with exertion, SOB at rest Cardiovascular: dyspnea on exertion, orthopnea, edema. denies: chest pain Gastrointestinal: denies: abdominal pain, hematemesis, melena, hematochezia Neurological: weakness Hematological/Lymphatic: denies: easy bleeding ED Past Medical Hx - Past Medical History Previous Medical History?: Yes Hx Hypertension: Yes Hx Congestive Heart Failure: Yes - Surgical History Past Surgical History?: Yes Additional Surgical History: c section x2 - Social History Smoking Status: Never Smoker Substance Use Type: None - Medications Home Medications: Home Medications Medication Instructions Recorded Confirmed Last Taken Type Aspirin [Aspirin BABY CHEW TAB] 81 mg PO QDAY 30 Days #30 tab.chew 09/29/21 Unknown Rx Furosemide [Lasix TAB] 40 mg PO QDAY 30 Days #30 tablet 09/29/21 Unknown Rx Losartan [Cozaar] 100 mg PO QDAY 30 Days #30 tablet 09/29/21 Unknown Rx carvediloL [Coreg] 12.5 mg PO BID 30 Days #60 tablet 09/29/21 Unknown Rx ED Physical Exam - General Limitations: No Limitations General appearance: alert, in no apparent distress - Head Head exam: Present: atraumatic, normocephalic - Eye Eye exam: Present: normal appearance, EOMI. Absent: nystagmus - ENT ENT exam: Present: normal exam, normal orophraynx, mucous membranes moist, normal external ear exam - Neck Neck exam: Present: normal inspection, full ROM. Absent: tenderness, meningismus - Respiratory Respiratory exam: Present: rales. Absent: respiratory distress - Cardiovascular Cardiovascular Exam: Present: regular rate, normal rhythm, normal heart sounds, JVD. Absent: bradycardia, tachycardia, irregular rhythm, systolic murmur, diastolic murmur, rubs, gallop - GI/Abdominal GI/Abdominal exam: Present: soft. Absent: distended, tenderness, guarding, rebound, rigid, pulsatile mass - Extremities Exam Extremities exam: Present: normal inspection, full ROM, pedal edema, other (2+ pulses noted in the bilateral upper and lower extremities. There is no palpable cord. negative Homans sign. Muscular compartments are soft. The pelvis is stable.). Absent: calf tenderness - Back Exam Back exam: Present: normal inspection. Absent: tenderness, CVA tenderness (R), CVA tenderness (L), paraspinal tenderness, vertebral tenderness - Neurological Exam Neurological exam: Present: alert, oriented X3, other (No facial droop. Tongue midline. Extraocular movements intact bilaterally. Facial sensation intact to light touch in V1, V2, V3 distribution bilaterally. 5 and a 5 strength in 4 extremities. Sensation intact to light touch in 4 extremities.). Absent: motor sensory deficit - Psychiatric Psychiatric exam: Present: anxious - Skin Skin exam: Present: warm, dry, intact, normal color. Absent: rash ED Course Vital Signs 10/19/21 19:33 Temperature 97.4 F L Pulse Rate 83 Respiratory 18 Rate Blood Pressure 164/103 [Right] O2 Sat by Pulse 99 Oximetry - Reevaluation(s) Reevaluation #1: 10/19/21 21:21 Differential diagnosis, include but not limited to: Congestive heart failure, pneumonia Assessment and plan: 66-year-old female, with decompensated congestive heart failure, manifest by JVD, lower extremity edema, crackles, rales, and chest x- ray suggestive of congestive heart failure. No obvious etiology elucidated here in the emergency room. Laboratory studies pending. Place patient on a director cardiac, and administer supplemental oxygen. Reassess once data points have resulted hospital physician Dr Parish will admit once all data points back 10/19/21 21:47 Dr Arnold Parish to admit ED Medical Decision Making - Lab Data Result diagrams: 10/19/21 20:43 10/19/21 20:43 Vital Signs 10/19/21 19:33 Temperature 97.4 F L Pulse Rate 83 Respiratory 18 Rate Blood Pressure 164/103 [Right] O2 Sat by Pulse 99 Oximetry Lab Results 10/19/21 10/19/21 10/19/21 Range/Units 20:43 20:43 20:43 WBC 7.2 (4.5-11.0) K/mm3 RBC 4.76 (3.65-5.03) M/mm3 Hgb 11.4 (10.1-14.3) gm/dl Hct 36.8 (30.3-42.9) % MCV 77 L (79-97) fl MCH 24 L (28-32) pg MCHC 31 (30-34) % RDW 18.5 H (13.2-15.2) % Plt Count 361 (140-440) K/mm3 Lymph % (Auto) 19.3 (13.4-35.0) % [place] % (Auto) 8.0 H (0.0-7.3) % Eos % (Auto) 2.5 (0.0-4.3) % Baso % (Auto) 1.0 (0.0-1.8) % Lymph # (Auto) 1.4 (1.2-5.4) K/mm3 [place] # (Auto) 0.6 (0.0-0.8) K/mm3 Eos # (Auto) 0.2 (0.0-0.4) K/mm3 Baso # (Auto) 0.1 (0.0-0.1) K/mm3 Seg Neutrophils % 69.2 (40.0-70.0) % Seg Neutrophils # 5.0 (1.8-7.7) K/mm3 PT 15.3 H (12.2-14.9) Sec. INR 1.09 (0.87-1.13) Sodium 143 (137-145) mmol/L Potassium 3.9 (3.6-5.0) mmol/L Chloride 107.7 H (98-107) mmol/L Carbon Dioxide 24 (22-30) mmol/L Anion Gap 15 mmol/L BUN 17 (7-17) mg/dL Creatinine 1.3 H (0.6-1.2) mg/dL Estimated GFR 50 ml/min BUN/Creatinine Ratio 13 % Glucose 106 H (65-100) mg/dL Calcium 9.4 (8.4-10.2) mg/dL Magnesium 2.10 (1.7-2.3) mg/dL Total Bilirubin 0.30 (0.1-1.2) mg/dL AST 36 (5-40) units/L ALT 51 (7-56) units/L Alkaline Phosphatase 144 H (35-129) units/L Troponin T (0.00-0.029) ng/mL NT-Pro-B Natriuret Pep (0-900) pg/mL Total Protein 7.2 (6.3-8.2) g/dL Albumin 3.7 L (3.9-5) g/dL Albumin/Globulin Ratio 1.1 % // Range/Units 20:43 WBC (4.5-11.0) K/mm3 RBC (3.65-5.03) M/mm3 Hgb (10.1-14.3) gm/dl Hct (30.3-42.9) % MCV (79-97) fl MCH (28-32) pg MCHC (30-34) % RDW (13.2-15.2) % Plt Count (140-440) K/mm3 Lymph % (Auto) (13.4-35.0) % [place] % (Auto) (0.0-7.3) % Eos % (Auto) (0.0-4.3) % Baso % (Auto) (0.0-1.8) % Lymph # (Auto) (1.2-5.4) K/mm3 [place] # (Auto) (0.0-0.8) K/mm3 Eos # (Auto) (0.0-0.4) K/mm3 Baso # (Auto) (0.0-0.1) K/mm3 Seg Neutrophils % (40.0-70.0) % Seg Neutrophils # (1.8-7.7) K/mm3 PT (12.2-14.9) Sec. INR (0.87-1.13) Sodium (137-145) mmol/L Potassium (3.6-5.0) mmol/L Chloride (98-107) mmol/L Carbon Dioxide (22-30) mmol/L Anion Gap mmol/L BUN (7-17) mg/dL Creatinine (0.6-1.2) mg/dL Estimated GFR ml/min BUN/Creatinine Ratio % Glucose (65-100) mg/dL Calcium (8.4-10.2) mg/dL Magnesium (1.7-2.3) mg/dL Total Bilirubin (0.1-1.2) mg/dL AST (5-40) units/L ALT (7-56) units/L Alkaline Phosphatase (35-129) units/L Troponin T < 0.010 (0.00-0.029) ng/mL NT-Pro-B Natriuret Pep 3658 H (0-900) pg/mL Total Protein (6.3-8.2) g/dL Albumin (3.9-5) g/dL Albumin/Globulin Ratio % - EKG Data -: EKG Interpreted by Me - EKG Data 10/19/21 21:25 The EKG is interpreted at 21: 22 Sinus rhythm, rate 84 bpm. Left axis deviation. Left bundle branch block, and normal P wave axis. Interventricular conduction delay. Motion artifact. Abnormal EKG. Not a STEMI 10/19/21 21:27 The EKG is unchanged from prior EKG - Radiology Data Radiology results: report reviewed, image reviewed interpreted by me: 2 view x-ray of the chest suggest decompensated congestive heart failure CHEST 2 VIEWS INDICATION / CLINICAL INFORMATION: Dyspnea. COMPARISON: Chest x- ray from 09/11/2021 FINDINGS: SUPPORT DEVICES: None. HEART / MEDIASTINUM: Stable appearance of the cardiac and mediastinal silhouette. LUNGS / PLEURA: Bilateral perihilar and lower lung interstitial and airspace opacities with blunting of the costophrenic angles compatible with pleural fluid bilaterally. No pneumothorax. BONES: No significant osseous abnormality. ADDITIONAL FINDINGS: No significant additional findings. IMPRESSION: 1. Appearance of the chest suggests stable size of bilateral pleural effusions, scattered interstitial and airspace opacities differential considerations to include mild pulmonary edema and/or basilar atelectasis. Signer Name: Gunner Antonio II, MD Signed: 10/19/2021 8:48 PM Workstation Name: [id number] Critical Care Time: Yes Critical care time in (mins) excluding proc time.: 35 Critical care attestation.: If time is entered above; I have spent that time in minutes in the direct care of this critically ill patient, excluding procedure time. ED Disposition Clinical Impression: Acute congestive heart failure Disposition: ADMITTED INPATIENT Is pt being admited?: Yes Does the pt Need Aspirin: No Condition: Fair Referrals: PRIMARY CARE, [Primary Care Provider] - 3-5 Days
[2021-10-19 21:05] LABS: Basophils # (Auto) 0.1 K/mm3 (0.0-0.1); Eosinophils # (Auto) 0.2 K/mm3 (0.0-0.4); Eosinophils % (Auto) 2.5 % (0.0-4.3); Hematocrit 36.8 % (30.3-42.9); Hemoglobin 11.4 gm/dl (10.1-14.3); Lymphocytes # (Auto) 1.4 K/mm3 (1.2-5.4); Lymphocytes % (Auto) 19.3 % (13.4-35.0); Mean Corpuscular HGB Conc 31 % (30-34); Mean Corpuscular Volume 77 fl (79-97); Monocytes # (Auto) 0.6 K/mm3 (0.0-0.8); Platelet Count 361 K/mm3 (140-440); Red Blood Count 4.76 M/mm3 (3.65-5.03); Red Cell Distribution Width 18.5 % (13.2-15.2)
[2021-10-19 21:26] LABS: Albumin 3.7 g/dL (3.9-5); Calcium 9.4 mg/dL (8.4-10.2)
[2021-10-19 21:27] LABS: INR 1.09 (0.87-1.13)
[2021-10-19] MEDS ORDERED: FUROSEMIDE 40 MG/4 ML INJ IV ONE (21:34)
--- NOTE | 2021-10-19 21:53 | XRay Report ---
CHEST 2 VIEWS INDICATION / CLINICAL INFORMATION: Dyspnea. COMPARISON: Chest x-ray from 09/11/2021 FINDINGS: SUPPORT DEVICES: None. HEART / MEDIASTINUM: Stable appearance of the cardiac and mediastinal silhouette. LUNGS / PLEURA: Bilateral perihilar and lower lung interstitial and airspace opacities with blunting of the costophrenic angles compatible with pleural fluid bilaterally. No pneumothorax. BONES: No significant osseous abnormality. ADDITIONAL FINDINGS: No significant additional findings. IMPRESSION: 1. Appearance of the chest suggests stable size of bilateral pleural effusions, scattered interstitia l and airspace opacities differential considerations to include mild pulmonary edema and/or basilar a telectasis. Signer Name: Gunner Antonio II, MD Signed: 10/19/2021 9:48 PM Workstation Name: [id number]
[2021-10-19] MEDS ORDERED: ACETAMINOPHEN 325 MG TAB PO PRN (22:18)
[2021-10-19] MEDS ORDERED: ONDANSETRON 4 MG/2 ML INJ IV PRN (22:18)
[2021-10-19] MEDS ORDERED: MORPHINE 2 MG/1 ML INJ IV PRN (22:18)
[2021-10-19] MEDS ORDERED: MAGNESIUM HYDROXIDE (MOM) ORAL LIQD UDC PO PRN (22:18)
[2021-10-19] MEDS ORDERED: MORPHINE 4 MG/1 ML INJ IV PRN (22:18)
--- NOTE | 2021-10-19 22:29 | History and Physical Report ---
History of Present Illness Date of examination: 10/19/21 Date of admission: 10/19/2021 Chief complaint: Shortness of Breath History of present illness: 56-year-old female with known history of CHF ejection fraction of 15 to 20% presenting to the emergency room today complaining of shortness of breath. Patient was recently in the hospital for similar complaints during which he had cardiac catheterization showing minimal coronary artery disease. She denies any chest pain, no fever or chills, no headache or dizziness, no nausea vomiting and no abdominal pain. Patient indicates that she has been compliant with her medications. Work-up in the emergency room today, significant findings on the labs includes BNP of 3658. Chest x-ray suggestive of mild pulmonary edema and bibasilar atelectasis. Past History Past Medical History: heart failure, hypertension Past Surgical History: Social history: no significant social history Family history: no significant family history Medications and Allergies Allergies Allergy/AdvReac Type Severity Reaction Status Date / Time No Known Allergies Allergy Verified 10/19/21 19:36 Home Medications Medication Instructions Recorded Confirmed Last Taken Type Aspirin [Aspirin BABY CHEW TAB] 81 mg PO QDAY 30 Days #30 tab.chew 09/29/21 10/20/21 Unknown Rx Furosemide [Lasix TAB] 40 mg PO QDAY 30 Days #30 tablet 09/29/21 10/20/21 Unknown Rx Losartan [Cozaar] 100 mg PO QDAY 30 Days #30 tablet 09/29/21 10/20/21 Unknown Rx carvediloL [Coreg] 12.5 mg PO BID 30 Days #60 tablet 09/29/21 10/20/21 Unknown Rx Review of Systems Constitutional: no fever, no chills Ears, nose, mouth and throat: no nasal congestion, no sore throat Cardiovascular: no chest pain, no palpitations Respiratory: shortness of breath, no cough Gastrointestinal: no abdominal pain, no nausea, no vomiting, no diarrhea Genitourinary Female: no pelvic pain, no flank pain, no dysuria, no hematuria Musculoskeletal: no neck pain, no low back pain Integumentary: no rash, no pruritis Neurological: no headaches, no confusion Psychiatric: no anxiety, no depression Endocrine: no polyphagia, no polydipsia, no polyuria, no nocturia Exam - Constitutional Vitals: Temp Pulse Resp BP Pulse Ox 97.4 F L 83 18 164/103 99 10/19/21 19:33 10/19/21 19:33 10/19/21 19:33 10/19/21 19:33 10/19/21 19:33 General appearance: Present: no acute distress, well-nourished - EENT Eyes: Present: PERRL, EOM intact. Absent: scleral icterus ENT: hearing intact, clear oral mucosa, dentition normal - Neck Neck: Present: supple, normal ROM - Respiratory Respiratory effort: normal Respiratory: bilateral: CTA - Cardiovascular Rhythm: regular Heart Sounds: Present: S1 & S2. Absent: gallop, systolic murmur, diastolic murmur, rub, click - Extremities Extremities: no ischemia, pulses intact, pulses symmetrical, No edema, normal temperature, normal color, Full ROM Peripheral Pulses: within normal limits - Abdominal General gastrointestinal: Present: soft, non-tender, non-distended, normal bowel sounds. Absent: mass - Integumentary Integumentary: Present: clear, warm, dry, normal turgor. Absent: rash - Musculoskeletal Musculoskeletal: strength equal bilaterally - Psychiatric Psychiatric: appropriate mood/affect, intact judgment & insight, memory intact, cooperative - Neurologic Neurologic: CNII-XII intact, no focal deficits, moves all extremities HEART Score - HEART Score Troponin: Troponin T < 0.010 ng/mL (0.00-0.029) 10/19/21 20:43 Results - Labs CBC & Chem 7: 10/20/21 05:38 10/20/21 05:38 Labs: Abnormal lab results 10/19/21 10/19/21 10/19/21 Range/Units 20:43 20:43 20:43 MCV 77 L (79-97) fl MCH 24 L (28-32) pg RDW 18.5 H (13.2-15.2) % [place] % (Auto) 8.0 H (0.0-7.3) % PT 15.3 H (12.2-14.9) Sec. Chloride 107.7 H (98-107) mmol/L Creatinine 1.3 H (0.6-1.2) mg/dL Glucose 106 H (65-100) mg/dL Alkaline Phosphatase 144 H (35-129) units/L NT-Pro-B Natriuret Pep (0-900) pg/mL Albumin 3.7 L (3.9-5) g/dL 10/19/21 Range/Units 20:43 MCV (79-97) fl MCH (28-32) pg RDW (13.2-15.2) % [place] % (Auto) (0.0-7.3) % PT (12.2-14.9) Sec. Chloride (98-107) mmol/L Creatinine (0.6-1.2) mg/dL Glucose (65-100) mg/dL Alkaline Phosphatase (35-129) units/L NT-Pro-B Natriuret Pep 3658 H (0-900) pg/mL Albumin (3.9-5) g/dL Assessment and Plan - Patient Problems (1) CHF (congestive heart failure) Current Visit: Yes Status: Acute Plan to address problem: Patient admitted and placed on telemetry. She has been started on diuretics. Will monitor input and output and also monitor daily weights. Recent echocardiogram few weeks ago reveals ejection fraction of 15 to 20%. (2) Hypertension Current Visit: No Status: Acute Plan to address problem: We will resume patient's routine home medications and monitor vital signs closely. (3) DVT prophylaxis Current Visit: Yes Status: Acute Plan to address problem: Patient placed on subcutaneous heparin. (4) Full code status Current Visit: Yes Status: Acute Plan to address problem: Patient is full code.
[2021-10-20] MEDS: LOSARTAN 50 MG TAB PO SCH ×2 (00:23→09:28)
[2021-10-20] MEDS: carvediloL 12.5 MG TAB PO SCH ×2 (00:23→09:29)
[2021-10-20 06:24] LABS: Basophils # (Auto) 0.1 K/mm3 (0.0-0.1); Basophils % (Auto) 0.8 % (0.0-1.8); Eosinophils # (Auto) 0.2 K/mm3 (0.0-0.4); Eosinophils % (Auto) 2.6 % (0.0-4.3); Lymphocytes # (Auto) 1.3 K/mm3 (1.2-5.4); Lymphocytes % (Auto) 18.9 % (13.4-35.0); Mean Corpuscular HGB Conc 30 % (30-34); Mean Corpuscular Volume 77 fl (79-97); Monocytes # (Auto) 0.6 K/mm3 (0.0-0.8); Monocytes % (Auto) 8.6 % (0.0-7.3); Platelet Count 318 K/mm3 (140-440); Red Blood Count 4.53 M/mm3 (3.65-5.03); Red Cell Distribution Width 18.2 % (13.2-15.2)
[2021-10-20 06:39] LABS: Calcium 9.6 mg/dL (8.4-10.2)
[2021-10-20 06:47] LABS: Hemoglobin 10.6 gm/dl (10.1-14.3)
[2021-10-20] MEDS: FUROSEMIDE 40 MG/4 ML INJ IV SCH ×2 (07:47→17:19)
--- NOTE | 2021-10-20 08:04 | Progress Note ---
Assessment and Plan Assessment and plan: #Acute on chronic heart failure with reduced ejection fraction #non-ischemic cardiomyopathy -TTE from this month shows EF 15-20% -outpatient medications: Lasix 40 mg daily, carvedilol 12.5 mg twice daily and losartan 100 mg daily -continue lasix 40mg IV BID, Entresto and spironolactone started by cardiology -monitor input and output, daily weights, fluid restriction -continue telemetry -Cardiology consulted, assistance appreciated #Pulmonary edema #Bilateral pleural effusions-stable -likely secondary to above problem -will continue diuresis and re-assess daily -currently on supplemental O2 although her O2 saturation is normal, patient feels more comfortable with it on -if patient does not improve, can consider theraputic thoracentesis #Hypertension -continue medications as above -goal SBP <160 #Microcytic anemia -will order iron studies -will transfuse for Hgb less than 7 #Advanced care planning -Disease education conducted, care plan discussed, diagnoses discussed, prognosis discussed, and patient acknowledges understanding with care plan -Time: +30 min History Interval history: No acute events overnight. Patient reports feeling great when she was discharged recently, but noticed accumulation of fluid in her legs and worsening shortness of breath. Has noticed improvement since admission. Reports compliance with all medications. Hospitalist Physical - Physical exam Narrative exam: GENERAL: Well-developed well-nourished. In no acute distress. HEENT: Nasal cannula 2 L/min NECK: Supple. CHEST/LUNGS: Mild expiratory crackles posteriorly. HEART/CARDIOVASCULAR: RRR. No murmur, rubs or gallops appreciated. ABDOMEN: +BS. NT/ND. SKIN: No rashes noted. NEURO: No focal motor deficit. Follows all commands. MUSCULOSKELETAL: No joint effusion EXTREMITIES: No cyanosis, clubbing or edema. PSYCH: Cooperative. - Constitutional Vitals: Temp Pulse Resp BP Pulse Ox 97.9 F 78 18 130/101 97 10/20/21 04:16 10/20/21 04:16 10/20/21 04:16 10/20/21 04:16 10/20/21 04:16 General appearance: Present: no acute distress, well-nourished HEART Score - HEART Score Troponin: Troponin T < 0.010 ng/mL (0.00-0.029) 10/19/21 20:43 Results - Labs CBC & Chem 7: 10/20/21 05:38 10/20/21 05:38 Labs: Laboratory Last Values WBC 7.0 K/mm3 (4.5-11.0) 10/20/21 05:38 RBC 4.53 M/mm3 (3.65-5.03) 10/20/21 05:38 Hgb 10.6 gm/dl (10.1-14.3) 10/20/21 05:38 Hct 35.0 % (30.3-42.9) 10/20/21 05:38 MCV 77 fl (79-97) L 10/20/21 05:38 MCH 23 pg (28-32) L 10/20/21 05:38 MCHC 30 % (30-34) 10/20/21 05:38 RDW 18.2 % (13.2-15.2) H 10/20/21 05:38 Plt Count 318 K/mm3 (140-440) 10/20/21 05:38 Lymph % (Auto) 18.9 % (13.4-35.0) 10/20/21 05:38 [place] % (Auto) 8.6 % (0.0-7.3) H 10/20/21 05:38 Eos % (Auto) 2.6 % (0.0-4.3) 10/20/21 05:38 Baso % (Auto) 0.8 % (0.0-1.8) 10/20/21 05:38 Lymph # (Auto) 1.3 K/mm3 (1.2-5.4) 10/20/21 05:38 [place] # (Auto) 0.6 K/mm3 (0.0-0.8) 10/20/21 05:38 Eos # (Auto) 0.2 K/mm3 (0.0-0.4) 10/20/21 05:38 Baso # (Auto) 0.1 K/mm3 (0.0-0.1) 10/20/21 05:38 Seg Neutrophils % 69.1 % (40.0-70.0) 10/20/21 05:38 Seg Neutrophils # 4.8 K/mm3 (1.8-7.7) 10/20/21 05:38 PT 15.3 Sec. (12.2-14.9) H 10/19/21 20:43 INR 1.09 (0.87-1.13) 10/19/21 20:43 Sodium 145 mmol/L (137-145) 10/20/21 05:38 Potassium 3.9 mmol/L (3.6-5.0) 10/20/21 05:38 Chloride 106.9 mmol/L (98-107) 10/20/21 05:38 Carbon Dioxide 28 mmol/L (22-30) 10/20/21 05:38 Anion Gap 14 mmol/L 10/20/21 05:38 BUN 14 mg/dL (7-17) 10/20/21 05:38 Creatinine 1.2 mg/dL (0.6-1.2) 10/20/21 05:38 Estimated GFR 55 ml/min 10/20/21 05:38 BUN/Creatinine Ratio 12 % 10/20/21 05:38 Glucose 107 mg/dL (65-100) H 10/20/21 05:38 Calcium 9.6 mg/dL (8.4-10.2) 10/20/21 05:38 Magnesium 2.10 mg/dL (1.7-2.3) 10/19/21 20:43 Total Bilirubin 0.30 mg/dL (0.1-1.2) 10/19/21 20:43 AST 36 units/L (5-40) 10/19/21 20:43 ALT 51 units/L (7-56) 10/19/21 20:43 Alkaline Phosphatase 144 units/L (35-129) H 10/19/21 20:43 Troponin T < 0.010 ng/mL (0.00-0.029) 10/19/21 20:43 NT-Pro-B Natriuret Pep 3658 pg/mL (0-900) H 10/19/21 20:43 Total Protein 7.2 g/dL (6.3-8.2) 10/19/21 20:43 Albumin 3.7 g/dL (3.9-5) L 10/19/21 20:43 Albumin/Globulin Ratio 1.1 % 10/19/21 20:43 [place]/IV: Voiding Method Toilet Active Medications - Current Medications Current Medications: Generic Name Dose Route Start Last Admin Trade Name Freq PRN Reason Stop Dose Admin Acetaminophen 650 mg 10/19/21 22:18 Acetaminophen 325 Mg Tab PO Q4H PRN Pain MILD(1-3)/Fever >100.5/WARNER Aspirin 81 mg 10/20/21 10:00 Aspirin Ec 81 Mg Tab PO QDAY [facility] Carvedilol 12.5 mg 10/20/21 01:00 10/20/21 00:23 Carvedilol 12.5 Mg Tab PO 12.5 mg BID [facility] Administration Furosemide 40 mg 10/20/21 06:00 10/20/21 07:47 Furosemide 40 Mg/4 Ml Inj IV Not Given BID@0600,1800 [facility] Heparin Sodium (Porcine) 5,000 unit 10/20/21 08:00 Heparin 5,000 Unit/1 Ml Vial SUB-Q Q8HR [facility] Losartan Potassium 100 mg 10/20/21 00:17 10/20/21 00:23 Losartan 50 Mg Tab PO 100 mg QDAY [facility] Administration Magnesium Hydroxide 30 ml 10/19/21 22:18 Magnesium Hydroxide (Mom) Oral Liqd Udc PO Q4H PRN Constipation Morphine Sulfate 2 mg 10/19/21 22:18 Morphine 2 Mg/1 Ml Inj IV Q4H PRN Pain, Moderate (4-6) Morphine Sulfate 4 mg 10/19/21 22:18 Morphine 4 Mg/1 Ml Inj IV Q4H PRN Pain , Severe (7-10) Ondansetron HCl 4 mg 10/19/21 22:18 Ondansetron 4 Mg/2 Ml Inj IV Q8H PRN Nausea And Vomiting Sodium Chloride 10 ml 10/20/21 10:00 Sodium Chloride 0.9% 10 Ml Flush Syringe IV BID [facility] Sodium Chloride 10 ml 10/19/21 22:18 Sodium Chloride 0.9% 10 Ml Flush Syringe IV PRN PRN LINE FLUSH
[2021-10-20] MEDS: ASPIRIN EC 81 MG TAB PO SCH (09:28)
[2021-10-20] MEDS: HEPARIN 5,000 UNIT/1 ML VIAL SUB-Q SCH ×3 (09:29→21:37)
[2021-10-20] MEDS ORDERED: carvediloL 25 MG TAB PO SCH (13:00)
[2021-10-20] MEDS ORDERED: carvediloL 12.5 MG TAB PO ONE (13:00)
[2021-10-20] MEDS: SPIRONOLACTONE 25 MG TAB PO SCH (13:33)
--- NOTE | 2021-10-20 16:13 | Consultation ---
History of Present Illness Consult date: 10/20/21 Requesting physician: DEEPTHI OLIVO Consult reason: congestive heart failure History of present illness: Patient is a 66-year-old -Lao female with t past medical history of HFrEF, nonischemic cardiomyopathy, hypertension who presented to [facility] with 3 to 4-day history of shortness of breath. Patient reports that she feels that she has fluid on her lungs. She reports dyspnea on exertion and bilateral lower extremity edema. However she denies chest pain, nausea, vomiting orthopnea, PND. Patient was recently admitted for similar complaints and found to have a EF of 15 to 20%. During that admission patient also had a cardiac cath which showed mild coronary artery disease. Patient reports that she is compliant with her medications, diet and fluid restrictions. However she does report that since discharge her blood pressure has been elevated and has not been able to control her blood pressure. Patient was previously seen by our practice during recent admission however patient has not had a chance to follow-up with patient follow-up scheduled to have been tomorrow. Cardiology is consulted for CHF Past History Past Medical History: heart failure, hypertension Past Surgical History: Social history: no significant social history Family history: no significant family history Medications and Allergies Allergies Allergy/AdvReac Type Severity Reaction Status Date / Time No Known Allergies Allergy Verified 10/19/21 19:36 Home Medications Medication Instructions Recorded Confirmed Last Taken Type Aspirin [Aspirin BABY CHEW TAB] 81 mg PO QDAY 30 Days #30 tab.chew 09/29/21 10/20/21 Unknown Rx Furosemide [Lasix TAB] 40 mg PO QDAY 30 Days #30 tablet 09/29/21 10/20/21 Unknown Rx Losartan [Cozaar] 100 mg PO QDAY 30 Days #30 tablet 09/29/21 10/20/21 Unknown Rx carvediloL [Coreg] 12.5 mg PO BID 30 Days #60 tablet 09/29/21 10/20/21 Unknown Rx Active Meds: Active Medications Acetaminophen (Acetaminophen 325 Mg Tab) 650 mg PO Q4H PRN PRN Reason: Pain MILD(1-3)/Fever >100.5/WARNER Aspirin (Aspirin Ec 81 Mg Tab) 81 mg PO QDAY [facility] Last Admin: 10/20/21 09:28 Dose: 81 mg Carvedilol (Carvedilol 25 Mg Tab) 25 mg PO BID [facility] Furosemide (Furosemide 40 Mg/4 Ml Inj) 40 mg IV BID@0600,1800 [facility] Last Admin: 10/20/21 07:47 Dose: Not Given Heparin Sodium (Porcine) (Heparin 5,000 Unit/1 Ml Vial) 5,000 unit SUB-Q Q8HR [facility] Last Admin: 10/20/21 13:33 Dose: 5,000 unit Magnesium Hydroxide (Magnesium Hydroxide (Mom) Oral Liqd Udc) 30 ml PO Q4H PRN PRN Reason: Constipation Morphine Sulfate (Morphine 2 Mg/1 Ml Inj) 2 mg IV Q4H PRN PRN Reason: Pain, Moderate (4-6) Morphine Sulfate (Morphine 4 Mg/1 Ml Inj) 4 mg IV Q4H PRN PRN Reason: Pain , Severe (7-10) Ondansetron HCl (Ondansetron 4 Mg/2 Ml Inj) 4 mg IV Q8H PRN PRN Reason: Nausea And Vomiting Sacubitril/Valsartan (Sacubitril/Valsartan 49-51 Mg Tab) 1 each PO BID [facility] Sodium Chloride (Sodium Chloride 0.9% 10 Ml Flush Syringe) 10 ml IV BID [facility] Last Admin: 10/20/21 09:29 Dose: 10 ml Sodium Chloride (Sodium Chloride 0.9% 10 Ml Flush Syringe) 10 ml IV PRN PRN PRN Reason: LINE FLUSH Spironolactone (Spironolactone 25 Mg Tab) 25 mg PO QDAY [facility] Last Admin: 10/20/21 13:33 Dose: 25 mg Review of Systems Constitutional: no weight loss, no weight gain, no fever, no chills Ears, nose, mouth and throat: no nasal discharge, no sinus pressure, no sinus pain Cardiovascular: shortness of breath, dyspnea on exertion, leg edema, no chest pain, no orthopnea, no palpitations Respiratory: shortness of breath, dyspnea on exertion Gastrointestinal: no abdominal pain, no nausea, no vomiting Musculoskeletal: no neck stiffness, no neck pain Integumentary: no rash, no pruritis, no redness Neurological: no head injury, no transient paralysis Psychiatric: no anxiety, no memory loss Endocrine: no cold intolerance, no heat intolerance Physical Examination Vital Signs Temp Pulse Resp BP Pulse Ox 97.4 F L 83 18 164/103 99 10/19/21 19:33 10/19/21 19:33 10/19/21 19:33 10/19/21 19:33 10/19/21 19:33 General appearance: no acute distress HEENT: Positive: PERRL, Normocephaly Neck: Positive: trachea midline Cardiac: Positive: Reg Rate and Rhythm Lungs: Positive: Decreased Breath Sounds Neuro: Positive: Grossly Intact Abdomen: Positive: Soft Skin: Negative: Rash, Suspicious Lesions, Ulceration Extremities: Present: upper extr. pulses. Absent: edema Results 10/20/21 05:38 10/20/21 05:38 Cardiac Enzymes 10/19/21 Range/Units 20:43 AST 36 (5-40) units/L Coagulation 10/19/21 Range/Units 20:43 PT 15.3 H (12.2-14.9) Sec. INR 1.09 (0.87-1.13) CBC 10/19/21 10/20/21 Range/Units 20:43 05:38 WBC 7.2 7.0 (4.5-11.0) K/mm3 RBC 4.76 4.53 (3.65-5.03) M/mm3 Hgb 11.4 10.6 (10.1-14.3) gm/dl Hct 36.8 35.0 (30.3-42.9) % Plt Count 361 318 (140-440) K/mm3 Lymph # (Auto) 1.4 1.3 (1.2-5.4) K/mm3 [place] # (Auto) 0.6 0.6 (0.0-0.8) K/mm3 Eos # (Auto) 0.2 0.2 (0.0-0.4) K/mm3 Baso # (Auto) 0.1 0.1 (0.0-0.1) K/mm3 Comprehensive Metabolic Panel 10/19/21 10/20/21 Range/Units 20:43 05:38 Sodium 143 145 (137-145) mmol/L Potassium 3.9 3.9 (3.6-5.0) mmol/L Chloride 107.7 H 106.9 (98-107) mmol/L Carbon Dioxide 24 28 (22-30) mmol/L BUN 17 14 (7-17) mg/dL Creatinine 1.3 H 1.2 (0.6-1.2) mg/dL Glucose 106 H 107 H (65-100) mg/dL Calcium 9.4 9.6 (8.4-10.2) mg/dL AST 36 (5-40) units/L ALT 51 (7-56) units/L Alkaline Phosphatase 144 H (35-129) units/L Total Protein 7.2 (6.3-8.2) g/dL Albumin 3.7 L (3.9-5) g/dL - Imaging and Cardiology Echo: report reviewed Cardiac cath: report reviewed EKG: report reviewed, image reviewed EKG interpretations - Telemetry EKG Rhythm: Sinus Rhythm - EKG Sinus rhythms and dysrhythmias: sinus rhythm AV and intraventricular conduction: left bundle branch block Assessment and Plan Patient is a 66-year-old -Lao female with t past medical history of HFrEF, nonischemic cardiomyopathy, hypertension who presented to [facility] with 3 to 4-day history of shortness of breath. Acute on chronic HFrEF Hypertension Cardiomyopathy Echocardiogram 09/26/2021: Left ventricle: The left ventricle is normal size. There is normal left ventricular wall thickness. Left ventricular ejection fraction is severely decreased. LVEF is 15 to 20%.Right ventricle: The right ventricle is normal size. Right ventricular systolic function is mildly reduced. Left atrium size is normal. Right atrium is mildly dilated. Tricuspid valve: Moderate tricuspid regurgitation. RSVP is 55 mmHg. Cardiac cath 09/28/2021-dilated left ventricle with severe diffuse hypokinesis with EF of 15 to 20%. Mild coronary artery disease Outpatient medications aspirin, Coreg 12.5 mg p.o. twice daily, Lasix 40 mg p.o. daily, losartan 100 mg p.o. daily Plan: EKG shows sinus rhythm 84 with left bundle branch block and no acute ischemic changes. Patient remains chest pain-free Patient found to have hypertension and reports elevated BP as an outpatient. Will increase carvedilol to 25 mg p.o. twice daily Will transition from losartan to Entresto Will initiate Aldactone 25 mg p.o. daily BNP noted to be elevated however lower than previous admission Agree with Lasix IV for diuresis. Strict I's and O's. Repeat BMP in a.m. Patient seen in conjunction with Dr. Calle who agrees with this plan of care - Patient Problems (1) Acute HFrEF (heart failure with reduced ejection fraction) Current Visit: No Status: Acute (2) Hypertension Current Visit: No Status: Acute (3) Left bundle branch block Current Visit: No Status: Acute
[2021-10-20] MEDS: SACUBITRIL/VALSARTAN 49-51 MG TAB PO SCH (21:37)
[2021-10-20] MEDS: carvediloL 25 MG TAB PO SCH (21:37)
[2021-10-21] MEDS: HEPARIN 5,000 UNIT/1 ML VIAL SUB-Q SCH ×2 (05:32→14:30)
[2021-10-21] MEDS: FUROSEMIDE 40 MG/4 ML INJ IV SCH (05:32)
[2021-10-21 05:34] LABS: Calcium 9.7 mg/dL (8.4-10.2)
[2021-10-21] MEDS: ASPIRIN EC 81 MG TAB PO SCH (10:34)
[2021-10-21] MEDS: SACUBITRIL/VALSARTAN 49-51 MG TAB PO SCH (10:34)
[2021-10-21] MEDS: carvediloL 25 MG TAB PO SCH (10:34)
[2021-10-21] MEDS: SPIRONOLACTONE 25 MG TAB PO SCH (10:35)
--- NOTE | 2021-10-21 14:24 | Discharge Summary ---
Providers - Providers Date of Admission: 10/19/21 22:18 Date of discharge: 10/21/21 Attending physician: ETHAN ALEXANDRE MD 10/19/21 22:18 Consult to Physician [CONS] Routine Comment: Consulting Provider: IDA IRAHETA Physician Instructions: Reason For Exam: CHF Exac. Primary care physician: MACHINIST [facility] Hospitalization Reason for admission: CHF exacerbation Condition: Good Hospital course: 66-year-old woman who was recently diagnosed with congestive heart failure with ejection fraction of 15 to 25% who presented with shortness of breath. She was admitted for CHF exacerbation and titration of her medications. Cardiology was consulted and her goal-directed medical therapy was uptitrated. She was found to be in respiratory failure requiring 2 L oxygen. She was weaned to room air. Home oxygen walk test was negative. She was discharged home with updated prescriptions. Disposition: 01 HOME / SELF CARE / HOMELESS Final Discharge Diagnosis (Prints w/discharge instructions): Nonischemic cardiomyopathy. Acute on chronic heart failure with reduced ejection fraction. Pulmonary edema. Bilateral pleural effusions. Hypertension. Microcytic anemia secondary to iron deficiency Time spent for discharge: 40 MINUTES Core Measure Documentation - Palliative Care Palliative Care/ Comfort Measures: Not Applicable - Core Measures Any of the following diagnoses?: heart failure - Heart Failure Discharge Requirements CAITIE/ARB for LVSD if EF <40%: Yes Beta beckie at discharge: Yes Exam - Physical Exam Narrative exam: GENERAL: Well-developed well-nourished. In no acute distress. HEENT: Normocephalic. Atraumatic CHEST/LUNGS: Improved expiratory crackles posteriorly. HEART/CARDIOVASCULAR: RRR. No murmur, rubs or gallops appreciated. ABDOMEN: +BS. NT/ND. NEURO: No focal motor deficit. Follows all commands. EXTREMITIES: No cyanosis, clubbing or edema. PSYCH: Cooperative. - Constitutional Vitals: Temp Pulse Resp BP Pulse Ox 97.5 F L 66 18 123/85 97 10/21/21 08:58 10/21/21 08:58 10/21/21 03:59 10/21/21 08:58 10/21/21 12:18 Plan Care Plan Goals: Please limit the amount of liquids/fluids that you consumed in a day to less than 1.5 liters. Also limit the amount of salt you consume daily. Avoid adding salt to prepared foods. Make sure to take all the medications as they are prescribed to you. Please make an appointment to follow-up with your nerve specialist. Follow up with: PRIMARY CARE, [Primary Care Provider] - 3-5 Days Prescriptions: Spironolactone [Aldactone] 25 mg PO QDAY 30 Days #30 tablet Aspirin [Aspirin BABY CHEW TAB] 81 mg PO QDAY 30 Days #30 tab.chew carvediloL [Coreg] 25 mg PO BID 30 Days #60 tablet Sacubitril/Valsartan [Entresto 49-51 mg] 1 each PO BID 30 Days #60 tablet Furosemide [Lasix TAB] 40 mg PO QDAY 30 Days #30 tablet
--- NOTE | 2021-10-21 15:48 | Progress Note ---
Assessment and Plan Patient is a 66-year-old -[place] female with t past medical history of HFrEF, nonischemic cardiomyopathy, hypertension who presented to [facility] with 3 to 4-day history of shortness of breath. Acute on chronic HFrEF Hypertension Cardiomyopathy Echocardiogram 09/26/2021: Left ventricle: The left ventricle is normal size. There is normal left ventricular wall thickness. Left ventricular ejection fraction is severely decreased. LVEF is 15 to 20%.Right ventricle: The right ventricle is normal size. Right ventricular systolic function is mildly reduced. Left atrium size is normal. Right atrium is mildly dilated. Tricuspid valve: Moderate tricuspid regurgitation. RSVP is 55 mmHg. Cardiac cath 09/28/2021-dilated left ventricle with severe diffuse hypokinesis with EF of 15 to 20%. Mild coronary artery disease Outpatient medications aspirin, Coreg 12.5 mg p.o. twice daily, Lasix 40 mg p.o. daily, losartan 100 mg p.o. daily Plan: Patient BP much better controlled continue carvedilol to 25 mg p.o. twice daily, Entresto, Aldactone 25 mg p.o. daily Stop Lasix IV and convert to Lasix 40 mg p.o. daily Cardiac status otherwise stable Patient has a follow-up appointment with Dr. Calle, [facility] retail account specialist, on 11/04/2021 at 1 PM in our [place] location. Phone #[phone] Patient seen in conjunction with Dr. Calle who agrees with this plan of care - Patient Problems (1) Acute HFrEF (heart failure with reduced ejection fraction) Current Visit: No Status: Acute (2) Hypertension Current Visit: No Status: Acute (3) Left bundle branch block Current Visit: No Status: Acute Subjective Date of service: 10/21/21 Principal diagnosis: Hypertensive urgency acute on chronic HFrEF Interval history: Patient resting in bed in no acute distress Patient is sinus 70s to 80s on monitor with no evidence Objective Vital Signs Temp Pulse Resp BP Pulse Ox 10/21/21 12:18 97 10/21/21 08:58 97.5 F L 66 123/85 95 10/21/21 03:59 98.0 F 72 18 138/87 97 10/20/21 23:44 98.0 F 75 18 139/89 98 10/20/21 22:58 97 10/20/21 21:00 77 10/20/21 19:13 98.1 F 77 18 143/94 96 10/20/21 16:08 98.4 F 77 20 134/98 98 - Physical Examination HEENT: Positive: PERRL, Normocephaly Neck: Positive: trachea midline Cardiac: Positive: Reg Rate and Rhythm Lungs: Positive: Normal Breath Sounds Neuro: Positive: Grossly Intact Abdomen: Positive: Soft Skin: Negative: Rash, Suspicious Lesions, Ulceration Extremities: Present: upper extr. pulses. Absent: edema - Labs and Meds Comprehensive Metabolic Panel 10/21/21 Range/Units 04:28 Sodium 138 (137-145) mmol/L Potassium 3.8 (3.6-5.0) mmol/L Chloride 101.8 (98-107) mmol/L Carbon Dioxide 26 (22-30) mmol/L BUN 21 H (7-17) mg/dL Creatinine 1.5 H (0.6-1.2) mg/dL Glucose 116 H (65-100) mg/dL Calcium 9.7 (8.4-10.2) mg/dL - Imaging and Cardiology EKG: report reviewed, image reviewed Echo: report reviewed Cardiac cath: report reviewed - Telemetry EKG Rhythm: Sinus Rhythm - EKG Sinus rhythms and dysrhythmias: sinus rhythm AV and intraventricular conduction: left bundle branch block
--- NOTE | 2021-10-21 17:00 | Electrocardiograph Report ---
[facility] Test Date: 2021-10-19 Test Time: 21:22:41 Pat Name: SOHAN ARNOLD Department: Room: A489 1 Gender: F Baggage And Mail Agent: Joaquín BALL : 1955 Requested By: KIMBERLY GRANGER Order Number: [id number] Reading MD: Tiffanie Perez Measurements Intervals [place] Rate: 84 P: 56 UT: 156 QRS: -38 QRSD: 142 T: 121 QT: 425 QTc: 502 Interpretive Statements Sinus rhythm Probable left atrial enlargement LEFT BUNDLE BRANCH BLOCK Compared to ECG 09/28/2021 06:50:20 No significant changes Electronically Signed On 10-21-2021 17:00:09 EDT by Tiffanie Perez
[2021-10-21 18:04] VITALS: BP 137/85
[2021-10-22] MEDS ORDERED: FUROSEMIDE 40 MG TAB PO SCH (10:00)
== END 2021-10-21 17:30 | disposition home or self-care (01) | DRG 291 ==
LOC: ED 19:21 → 4A 22:18
PROVIDERS: ADMIT Internal Medicine Geriatric Medicine; ATTEND Student in an Organized Health Care Education/Training Program
DX: I11.0 Hypertensive heart disease with heart failure (principal); I50.23 Acute on chronic systolic (congestive) heart failure; J81.0 Acute pulmonary edema; D64.9 Anemia, unspecified; I42.8 Other cardiomyopathies; I44.7 Left bundle-branch block, unspecified
CPT/HCPCS: 36415; 71046; 80048; 80053; 82728; 83550; 83735; 83880; 84484; 85025; 85610; 93005; 96374; 99291; G0378; J1644; J1940